=== PATIENT | female | born 1960 | race Caucasian/White ===

== ENCOUNTER 2023-12-03 14:36 | Emergency (ER) | payer OTHER, SELFPAY ==
[2023-12-03 14:53] VITALS: BP 168/83
--- NOTE | 2023-12-03 15:41 | ED.GENMED ---
History of Present Illness
General
Chief Complaint: Heart Rate Problem
Source: patient
Exam Limitations: none
Time Seen by Provider: 12/03/23 15:12
Nursing documentation reviewed up to this point in time: agreed with
History of Present Illness
History of Present Illness:
63-year-old female distant history of PVCs in the had a Holter monitor placed on lisinopril beta-carlitos or calcium channel carlitos calcium channel carlitos was held with first-degree block, has been well up until a few hours ago which
developed irregular heartbeats no nausea vomiting fever no chills, no chest pain has had thyroid issues, gets a TSH every year, nondrinker non-smoker no caffeine
Past History
Past History
ED Past Medical History: Arrthythmia (Specifics unknown), GERD, HTN and Other (Peptic ulcer disease, Graves' disease, back problems, diverticulitis, M�ni�re's disease)
ED Past Surgical History: Other (Oral surgery)
Social History
Tobacco: Non-smoker
Alcohol: None
Drug: None
Personal: Single
Living: with family
Employment: Employed
Family History
Family History: Other (Mother with A-fib)
Review of Systems
Review of Systems
All Other Systems: Not applicable
Constitutional: Denies fever or fatigue
Cardiac: Reports palpitations
ABD/GI: Reports no symptoms
: Reports no symptoms
Musculoskeletal: Reports no symptoms
Skin: Reports no symptoms
Neurological: Reports no symptoms
Phy Exam
Physical Exam
Physical Exam:
Physical Exam
General: no apparent distress, not acutely ill
Neck: No jaundice no obvious goiter
Heart: s1/s2 regular rate and rhythm, no murmur. equal radial pulses.
Lungs: no acute respiratory distress. clear bilaterally
Neuro: alert and oriented. no focal neurological deficits
Skin: no rash
Psychiatric: well kept. interactive and cooperative
Extremities: no edema.
Course
Orders/Labs/Results
Orders:
Orders
12/03/23 14:56
Electrocardiogram (*1) Urgent
Reason for Study: Chest Pain
12/03/23 14:57
EKG- Treatment ONCE
12/03/23 15:40
Complete Blood Count/With Diff Urgent
Comprehensive Metabolic Panel Urgent
Magnesium Urgent
TSH Urgent
Abnormal Lab Results
12/03/23
15:40
Absolute Monos (auto) 0.8 H 10^3/uL
(0.1-0.6)
Glucose 125 H mg/dl
(70-99)
12/03/23 15:40
12/03/23 15:40
Vital Signs
Initial and Last Documented VS:
Initial Vital Signs
Temp Pulse Resp BP Pulse Ox
98.0 F 88 16 168/83 98
12/03/23 14:53 12/03/23 14:53 12/03/23 14:53 12/03/23 14:53 12/03/23 14:53
Last Documented Vital Signs
Temp Pulse Resp BP Pulse Ox
98.0 F 70 18 168/83 96
12/03/23 14:53 12/03/23 16:30 12/03/23 16:30 12/03/23 14:53 12/03/23 16:30
MDM/Problems Addressed
Differential Diagnosis Includes:
PVCs SVT AF other arrhythmia electrolyte abnormality
MDM/Problems Addressed:
Palpitation
Chronic conditions affecting care: Arrhythmia
Acute Exacerbation and/or Progression of Chronic Illness: Arrhythmia
*Pulse Oximetry
Patient hypoxic: no
*EKG
Interpreted by ED Provider?: Yes
Interpretation: normal
Comparison EKG: no comparison EKG present
Heart Rate: 70
Rate: normal
Rhythm: sinus
Spencer: normal axis
Ischemia: no ischemia
*[employer] Interpretation
Rate: normal
Interpretation: normal
Heart Rate: 78
Rhythm: sinus and PVC's
*Critical Care Note
Total Time (30-74mins, 75-104mins- exclusive of procedures): Not Applicable
Data Reviewed
Source: patient
Update Note
Update Note:
Update, labs noted no arrhythmias on telemetry did have occasional PVCs
ED Attending Note
-
Portions of this chart may have been created with voice recognition software.� Occasional wrong word or��sound alike� substitutions may have occurred due to the inherent limitations of voice recognition software.
Discharge Plan
Departure
Patient Disposition: Home (Routine Discharge)
Date of Disposition: 12/03/23
Time of Disposition: 16:40
Patient with high blood pressure during this ER visit?: No
Condition: Good
Discharge Problem:
Heart palpitations
Instructions: Palpitations (DC), Ventricular premature beats
Prescriptions:
No Action
Vitamin A & D
1 tab PO DAILY
diazepam 2 MG tablet
2 mg PO TIDPRN PRN (Reason: vertigo)
lisinopril [Prinivil] 10 MG tablet
20 mg PO BID
metoprolol tartrate 50 MG tablet
50 mg PO BID
vitamin B complex 1 EACH tablet
1 tab PO DAILY
guaifenesin [Mucus Relief ER] 600 MG tablet extended release 12hr
600 mg PO PRN PRN (Reason: allergies)
rabeprazole [AcipHex] 20 MG tablet,delayed release (DR/EC)
20 mg PO BID
fluticasone propionate [Flovent HFA] 1 PUFF HFA aerosol inhaler
1 - 2 puff inhalation R BID PRN (Reason: allergies)
metformin 500 MG tablet
500 mg PO BID
atorvastatin [Lipitor] 40 MG tablet
40 mg PO QPM Qty: 30 0RF
ondansetron 4 MG tablet,disintegrating
4 mg PO Q8H PRN (Reason: Nausea/Vomiting) Qty: 20 0RF
calcium carbonate [Antacid (calcium carbonate)] 1 TABLET tablet,chewable
1 tab PO DAILY Qty: 0 0RF
docusate sodium 100 MG capsule
100 mg PO BID Qty: 0 0RF
bisacodyl 5 MG tablet,delayed release (DR/EC)
10 mg PO DAILYPRN PRN (Reason: Constipation) Qty: 0 0RF
phenyleph-min oil-petrolatum [Hemorrhoidal(PE-min oil-neda)] 1 APPLIC ointment
0 applic DC Q6HPRN PRN (Reason: hemorrhoid pain) 0RF
sennosides [senna] 1 TABLET tablet
2 tab PO BID 0RF
acetaminophen 325 MG tablet
650 mg PO Q4HPRN PRN (Reason: headache, temp >101F) Qty: 0 0RF
magnesium hydroxide 30 ML suspension
30 ml PO [id number] PRN (Reason: constipation) 0RF
aspirin 325 MG tablet,delayed release (DR/EC)
325 mg PO DAILY Qty: 30 0RF
Rx Instructions:
Asprin 325 mg for 30 days then resume aspirin 81 mg daily as before surgery
alum-mag hydroxide-simeth [Mag-Al Plus] 30 ML suspension
30 ml PO Q4HPRN PRN (Reason: indigestion) 0RF
hydrocodone-acetaminophen [[place]] 1 EACH tablet
1 ea PO Q4HPRN PRN (Reason: pain) Qty: 30 0RF
doxycycline monohydrate 100 mg capsule
100 mg PO BID Qty: 6 0RF
Rx Instructions:
to add to 7 day supply
Referrals:
Miri Leach CRNP [Family Provider] -
Yonathan Gordon MD [Active] - Next open appointment
Interventions
Interventions:
*Risk Screen - Suicide Last Done: 12/03/23 16:05
*Neglect/Abuse Screening Last Done: 12/03/23 16:05
*ED COVID-19 Vaccine History Last Done: 12/03/23 14:53
ED- Cardiac Assessment Last Done: 12/03/23 16:05
ED- Pulmonary Assessment Last Done: 12/03/23 16:05
Discharge Date and Time
Print Language: BELARUSIAN
[2023-12-03 15:49] LABS: % Basophils 0.4 % (0-2); % Eosinophils 4.7 % (0-6); % Immature Granulocytes 0.4 % (0-0.5); % Lymphocytes 32.2 % (20.5-51.1); % Monocytes 9.2 % (1.7-9.3); % Neutrophils 53.1 % (42.2-75.2); Absolute Eosinophils 0.4 10^3/uL (0-0.7); Absolute Lymphocytes 2.9 10^3/uL (1.2-3.4); Absolute Monocytes 0.8 10^3/uL (0.1-0.6); Absolute Neutrophils 4.8 10^3/uL (1.4-6.5); Hematocrit 38.4 % (37.0-47.0); Hemoglobin 13.4 g/dL (12.0-16.0); Mean Corp Hgb Conc. 34.9 g/dL (33.0-37.0); Mean Corpuscular Hgb 29.1 pg (27.0-31.0); Mean Corpuscular Volume 83.5 fL (81.0-99.0); Mean Platelet Volume 9.7 fL (7.4-10.4); Nucleated Red Blood Cells % 0 %; Platelet Count 307 10^3/uL (130-400); Red Cell Dist. Width 13.4 % (11.5-14.5); White Blood Cell Count 9.1 10^3/uL (4.8-10.8)
[2023-12-03 16:02] LABS: ALT (SGPT) 31 U/L (0-35); AST (SGOT) 28 U/L (14-36); Albumin 4.3 g/dl (3.5-5.0); Alkaline Phosphatase 110 U/L (38-126); Blood Urea Nitrogen 17 mg/dl (7-17); Calcium 9.6 mg/dl (8.4-10.2); Carbon Dioxide 22 mmol/L (22-30); Chloride 103 mmol/L (98-107); Glucose 125 mg/dl (70-99); Magnesium 1.8 mg/dl (1.6-2.3); Potassium 3.9 mmol/L (3.5-5.1); Sodium 137 mmol/L (135-145); Total Bilirubin 0.7 mg/dl (0.2-1.3); Total Protein 7.2 g/dl (6.3-8.2); eGFR > 60.00
[2023-12-03 16:32] LABS: TSH 1.49 uIU/ml (0.47-4.68)
== END 2023-12-03 17:27 | disposition home or self-care (01) ==
LOC: EMR 14:36
PROVIDERS: EMERGENCY PHYSICIAN Emergency Medicine; FAMILY PHYSICIAN Nurse Practitioner Primary Care
DX: R00.2 Palpitations (principal); I44.0 Atrioventricular block, first degree; I10 Essential (primary) hypertension; I49.3 Ventricular premature depolarization; K21.9 Gastro-esophageal reflux disease without esophagitis; E05.00 Thyrotoxicosis with diffuse goiter without thyrotoxic crisis or storm; K57.92 Diverticulitis of intestine, part unspecified, without perforation or abscess without bleeding; H81.09 Meniere's disease, unspecified ear; Z87.11 Personal history of peptic ulcer disease
CPT/HCPCS: 99283; 80053; 83735; 84443; 85025; 93005

== ENCOUNTER → 2023-12-15 09:00 | Outpatient (REF) | payer OTHER, SELFPAY | LOC: DHSLP 09:00 | PROVIDERS: ATTENDING PHYSICIAN Internal Medicine Critical Care Medicine; FAMILY PHYSICIAN Nurse Practitioner Primary Care | DX: G47.33 Obstructive sleep apnea (adult) (pediatric) (principal); R06.83 Snoring | CPT/HCPCS: 95800 ==

== ENCOUNTER 2024-03-15 08:18 | Emergency (ER) | payer OTHER, SELFPAY ==
[2024-03-15 08:21] VITALS: BP 149/89
[2024-03-15 09:13] VITALS: BMI 38.4
--- NOTE | 2024-03-15 09:29 | ED.GENMED ---
History of Present Illness
General
Chief Complaint: Abdominal Pain
Source: patient
Exam Limitations: none
Time Seen by Provider: 03/15/24 09:01
Nursing documentation reviewed up to this point in time: agreed with
History of Present Illness
History of Present Illness:
pt is a 63 y/o F with h/o sinus arrhythnmia, htn, niddm, diverticulitis
has had LLQ pain since yesterday gradually worse, similar to previous diverticulitis flares
she did clear liquids and is having worse pain today which is provoked with movement/bending/etc and better with lying flat
nausea but no vomiting/dairrhea, moved bowels this am
no fever/chills
nothing taken for pain
she says ibuprofen makes her bg elevated
she doesn't think tylenol helps
she had hydrocodone last week for an infected tooth and doxycycline and is asking for hydrocodone for pain
pt has had 1 previous hospitalization for divertic when it began [id number]
she has not had colonooscopies
Past History
Past History
ED Past Medical History: Arrthythmia (Specifics unknown), GERD, HTN and Other (Peptic ulcer disease, Graves' disease, back problems, diverticulitis, M�ni�re's disease)
ED Past Surgical History: Other (Oral surgery)
Social History
Tobacco: Non-smoker
Alcohol: None
Drug: None
Personal: Single
Living: with family
Employment: Employed
Family History
Family History: Other (Mother with A-fib)
Review of Systems
Review of Systems
Allergies reviewed?: Yes
All Other Systems: Not applicable
Phy Exam
Physical Exam
Physical Exam:
GENERAL: Alert , in no apparent distress
EYE: pupils equal and reactive
NECK: Supple
ENT: o/p clr, mmm.
CARDIAC: Regular rate and rhythm .
LUNGS: Clear breath sounds bilaterally, no acute respiratory distress, no wheezes/rales/rhonchi
ABDOMEN: Soft, mild left lower quad tendenress, no r/g, no cvat, normal bowel sounds
NEUROLOGICAL: Alert and oriented, no focal neuro deficits
SKIN: Warm and dry, skin intact.
MUSCULOSKELETAL: No edema, well perfused.
PSYCH: Normal and appropriate interaction.
Course
Orders/Labs/Results
Orders:
Orders
03/15/24 09:26
Hydrocodone 5/APAP 325 [[place] 5/325] 1 tablet PO NOW STA
03/15/24 09:27
CT Abd/pel (oral only)-DH Only Urgent
Comment:
Reason For Exam: llq pain h/o diverticulitis
Iohexol [Omnipaque] See Protocol PO NOW STA
03/15/24 09:37
Basic Metabolic Panel Urgent
Complete Blood Count/With Diff Urgent
Lipase Urgent
03/15/24 12:22
Comprehensive Metabolic Panel Urgent
Lipase Urgent
03/15/24 13:11
MetroNIDAZOLE [Flagyl] 500 mg PO NOW STA
Sulfamethox./Trimethoprim Ds [Bactrim Ds 800 mg/160 mg] 1 tablet PO NOW STA
03/15/24 13:15
Urinalysis Reflex To Culture Urgent
Date Specimen was Collected: 03/15/24
Time Specimen was Collected: 13:14
Urine Microscopic Reflex Cult Urgent
Abnormal Lab Results
03/15/24 03/15/24 03/15/24
09:37 12:22 12:23
WBC 11.2 H 10^3/uL
(4.8-10.8)
Abs Immat Gran (auto) 0.1 H 10^3/uL
(0-0.05)
Absolute Neuts (auto) 7.3 H 10^3/uL
(1.4-6.5)
Absolute Monos (auto) 0.9 H 10^3/uL
(0.1-0.6)
BUN 18 H mg/dl
(7-17)
Glucose 123 H mg/dl 114 H mg/dl
(70-99) (70-99)
Ur Occult Blood Reflex
Urine RBC
Urine Bacteria (Reflex)
POC Glucose 113 H mg/dl
(70-99)
03/15/24
13:15
WBC
Abs Immat Gran (auto)
Absolute Neuts (auto)
Absolute Monos (auto)
BUN
Glucose
Ur Occult Blood Reflex 3+ A
(Negative)
Urine RBC 11-15 A /HPF
(0-2)
Urine Bacteria (Reflex) Few A
(Negative)
POC Glucose
03/15/24 09:37
03/15/24 12:22
Vital Signs
Initial and Last Documented VS:
Initial Vital Signs
Temp Pulse Resp BP Pulse Ox
98.7 F 78 18 149/89 98
03/15/24 08:21 03/15/24 08:21 03/15/24 08:21 03/15/24 08:21 03/15/24 08:21
Last Documented Vital Signs
Temp Pulse Resp BP Pulse Ox
98.7 F 65 16 134/52 99
03/15/24 08:21 03/15/24 13:05 03/15/24 13:05 03/15/24 13:05 03/15/24 13:05
MDM/Problems Addressed
Differential Diagnosis Includes:
divertic, colitis,
MDM/Problems Addressed:
63 y/o F with h/o divertic
here with LLQ pain x 2 days
no vomiting/diarrhea/fever
well [place]
mild pain with movement
requesting hydrocodone
LLQ tenderness, no guarding/rebound
labs show mild leukocytosis
otherwise neg
CT shows mild divertic
liver lesion discussed with patient
ua has some blood and bacteria;
pt is allergic to PCN and FQ
per up to date recommendations can do bactrim and flagyl which pt has toelrated in the apst
she was made awre the bactrimn and lisinopril can cause inc K
aovid K rich foods
f/u with pcp
k 4.5 today
*Critical Care Note
Total Time (30-74mins, 75-104mins- exclusive of procedures): Not Applicable
ED Attending Note
-
Portions of this chart may have been created with voice recognition software.� Occasional wrong word or��sound alike� substitutions may have occurred due to the inherent limitations of voice recognition software.
Discharge Plan
Departure
Patient Disposition: Home (Routine Discharge)
Date of Disposition: 03/15/24
Time of Disposition: 13:12
Patient with high blood pressure during this ER visit?: No
Condition: Fair
Covid-19: Not Applicable
Discharge Problem:
Diverticulitis
Instructions: Diverticulitis (DC)
Prescriptions:
New
sulfamethoxazole-trimethoprim [Bactrim DS] 800-160 mg tablet
1 tab PO BID 7 Days Qty: 14 0RF
metronidazole 500 mg tablet
500 mg PO Q8H 7 Days Qty: 21 0RF
No Action
Vitamin A & D
1 tab PO DAILY
diazepam 2 MG tablet
2 mg PO TIDPRN PRN (Reason: vertigo)
lisinopril [Prinivil] 10 MG tablet
20 mg PO BID
metoprolol tartrate 50 MG tablet
50 mg PO BID
vitamin B complex 1 EACH tablet
1 tab PO DAILY
guaifenesin [Mucus Relief ER] 600 MG tablet extended release 12hr
600 mg PO PRN PRN (Reason: allergies)
rabeprazole [AcipHex] 20 MG tablet,delayed release (DR/EC)
20 mg PO BID
fluticasone propionate [Flovent HFA] 1 PUFF HFA aerosol inhaler
1 - 2 puff inhalation R BID PRN (Reason: allergies)
metformin 500 MG tablet
500 mg PO BID
atorvastatin [Lipitor] 40 MG tablet
40 mg PO QPM Qty: 30 0RF
ondansetron 4 MG tablet,disintegrating
4 mg PO Q8H PRN (Reason: Nausea/Vomiting) Qty: 20 0RF
calcium carbonate [Antacid (calcium carbonate)] 1 TABLET tablet,chewable
1 tab PO DAILY Qty: 0 0RF
docusate sodium 100 MG capsule
100 mg PO BID Qty: 0 0RF
bisacodyl 5 MG tablet,delayed release (DR/EC)
10 mg PO DAILYPRN PRN (Reason: Constipation) Qty: 0 0RF
phenyleph-min oil-petrolatum [Hemorrhoidal(PE-min oil-neda)] 1 APPLIC ointment
0 applic [place] Q6HPRN PRN (Reason: hemorrhoid pain) 0RF
sennosides [senna] 1 TABLET tablet
2 tab PO BID 0RF
acetaminophen 325 MG tablet
650 mg PO Q4HPRN PRN (Reason: headache, temp >101F) Qty: 0 0RF
magnesium hydroxide 30 ML suspension
30 ml PO [id number] PRN (Reason: constipation) 0RF
aspirin 325 MG tablet,delayed release (DR/EC)
325 mg PO DAILY Qty: 30 0RF
Rx Instructions:
Asprin 325 mg for 30 days then resume aspirin 81 mg daily as before surgery
alum-mag hydroxide-simeth [Mag-Al Plus] 30 ML suspension
30 ml PO Q4HPRN PRN (Reason: indigestion) 0RF
hydrocodone-acetaminophen [[place]] 1 EACH tablet
1 ea PO Q4HPRN PRN (Reason: pain) Qty: 30 0RF
doxycycline monohydrate 100 mg capsule
100 mg PO BID Qty: 6 0RF
Rx Instructions:
to add to 7 day supply
Referrals:
Miri Leach CRNP [Family Provider] -
Activity Restrictions/Additional Instructions:
You had mild diverticulitis in your descending/sigmoid colon. Take Flagyl 3 times a day for 7 days. Take Bactrim 1 tablet twice a day for 7 days. Be cautious that Bactrim and lisinopril can increase your potassium levels. Avoid extra potassium
in foods, you can google what foods are high in potassium and avoid those. You can also see your doctor next week to make sure they recheck you.
Return to the ER for worsening abdominal pain, fever, chills, chest pain or shortness of breath, bloody diarrhea or vomiting or any concerns
Interventions
Interventions:
*Risk Screen - Suicide Last Done: 03/15/24 08:21
*General Assessment Last Done: 03/15/24 08:21
*Neglect/Abuse Screening Last Done: 03/15/24 08:21
ED- Fall Risk Assessment Last Done: 03/15/24 13:22
*ED COVID-19 Vaccine History Last Done: 03/15/24 09:13
*Nursing Disposition Last Done: 03/15/24 13:22
DH-Lxgnie-Libflgmwlm Assessment Last Done: 03/15/24 09:14
Discharge Date and Time
Discharge Date/Time: 03/15/24 13:22
Print Language: ARMENIAN
[2024-03-15] MEDS: NORCO 5/325 1 TABLET PO (09:41)
[2024-03-15] MEDS: OMNIPAQUE 50 ML PO (09:42)
[2024-03-15 09:49] LABS: % Basophils 0.4 % (0-2); % Eosinophils 2.7 % (0-6); % Immature Granulocytes 0.4 % (0-0.5); % Lymphocytes 23.1 % (20.5-51.1); % Monocytes 8.2 % (1.7-9.3); % Neutrophils 65.2 % (42.2-75.2); Absolute Basophils 0.1 10^3/uL (0-0.2); Absolute Eosinophils 0.3 10^3/uL (0-0.7); Absolute Immature Granulocytes 0.1 10^3/uL (0-0.05); Absolute Lymphocytes 2.6 10^3/uL (1.2-3.4); Absolute Monocytes 0.9 10^3/uL (0.1-0.6); Absolute Neutrophils 7.3 10^3/uL (1.4-6.5); Hematocrit 39.3 % (37.0-47.0); Hemoglobin 13.4 g/dL (12.0-16.0); Mean Corp Hgb Conc. 34.1 g/dL (33.0-37.0); Mean Corpuscular Hgb 28.2 pg (27.0-31.0); Mean Corpuscular Volume 82.7 fL (81.0-99.0); Mean Platelet Volume 9.4 fL (7.4-10.4); Nucleated Red Blood Cells % 0 %; Platelet Count 247 10^3/uL (130-400); Red Blood Cell Count 4.75 10^6/uL (4.20-5.40); Red Cell Dist. Width 13.3 % (11.5-14.5); White Blood Cell Count 11.2 10^3/uL (4.8-10.8)
[2024-03-15 10:31] LABS: Blood Urea Nitrogen 18 mg/dl (7-17); Calcium 9.9 mg/dl (8.4-10.2); Carbon Dioxide 24 mmol/L (22-30); Chloride 100 mmol/L (98-107); Estimated Creatinine Clearance 120 ml/min; Glucose 123 mg/dl (70-99); Sodium 138 mmol/L (135-145); eGFR > 60.00
[2024-03-15 10:44] LABS: Lipase 91 U/L (23-300)
[2024-03-15 10:59] VITALS: BP 145/87
[2024-03-15 12:24] LABS: Glucose - Point of Care 113 mg/dl (70-99)
[2024-03-15 12:49] LABS: ALT (SGPT) 32 U/L (0-35); AST (SGOT) 25 U/L (14-36); Albumin 4.2 g/dl (3.5-5.0); Alkaline Phosphatase 82 U/L (38-126); Blood Urea Nitrogen 16 mg/dl (7-17); Calcium 9.9 mg/dl (8.4-10.2); Carbon Dioxide 25 mmol/L (22-30); Chloride 99 mmol/L (98-107); Estimated Creatinine Clearance 120 ml/min; Glucose 114 mg/dl (70-99); Lipase 91 U/L (23-300); Potassium 4.5 mmol/L (3.5-5.1); Sodium 136 mmol/L (135-145); Total Bilirubin 0.7 mg/dl (0.2-1.3); Total Protein 6.9 g/dl (6.3-8.2); eGFR > 60.00
[2024-03-15 13:05] VITALS: BP 134/52
[2024-03-15] MEDS: FLAGYL 500 MG PO (13:15)
[2024-03-15] MEDS: BACTRIM DS 800 MG/160 MG 1 TABLET PO (13:15)
[2024-03-15 13:27] LABS: Urine Albumin Negative (Neg - Trace); Urine Bilirubin Negative (Negative); Urine Character Clear (Clear); Urine Color Yellow; Urine Glucose Negative (Negative); Urine Ketone Negative (Negative); Urine Leukocyte Negative (Negative); Urine Nitrite Negative (Negative); Urine Occult Blood 3+ (Negative); Urine Specific Gravity 1.015 (<1.030); Urine Urobilinogen Negative (Neg - 1+)
[2024-03-15 13:35] LABS: Urine Bacteria Few (Negative); Urine White Cell 0-2 /HPF (0-5)
== END 2024-03-15 13:22 | disposition home or self-care (01) ==
LOC: EMR 08:18
PROVIDERS: Physician Assistant; EMERGENCY PHYSICIAN Emergency Medicine; FAMILY PHYSICIAN Nurse Practitioner Primary Care
DX: K57.32 Diverticulitis of large intestine without perforation or abscess without bleeding (principal); I10 Essential (primary) hypertension; E11.9 Type 2 diabetes mellitus without complications; K21.9 Gastro-esophageal reflux disease without esophagitis; E05.00 Thyrotoxicosis with diffuse goiter without thyrotoxic crisis or storm; Z79.82 Long term (current) use of aspirin; Z87.11 Personal history of peptic ulcer disease; Z88.8 Allergy status to other drugs, medicaments and biological substances; Z88.1 Allergy status to other antibiotic agents; Z91.030 Bee allergy status; Z91.041 Radiographic dye allergy status; Z88.0 Allergy status to penicillin; Z91.013 Allergy to seafood
CPT/HCPCS: 99284; 74176; 80048; 80053; 81003; 81015; 82962; 83690; 85025

== ENCOUNTER 2024-04-04 03:38 | Emergency (ER) | payer OTHER, SELFPAY ==
[2024-04-04 03:41] VITALS: BP 180/110
[2024-04-04 04:24] VITALS: BMI 37.0
[2024-04-04 04:29] VITALS: BP 142/68
[2024-04-04 05:01] VITALS: BP 112/100
--- NOTE | 2024-04-04 05:03 | ED.GENMED ---
History of Present Illness
<ZECHARIAH Ivy - Last Filed: 04/04/24 06:12>
General
Chief Complaint: Cardiac Symptoms
Source: patient
Exam Limitations: none
Time Seen by Provider: 04/04/24 04:46
Nursing documentation reviewed up to this point in time: agreed with
History of Present Illness
History of Present Illness:
Patient is a 63yo F w/ PMH of DM, HTN, and arrhythmia who presents to the ED w/ palpitations x3hrs. Pt was awoken by palpitations. Denies anxiety. Reports arrhythmia since 20s controlled w/ lisinopril & metoprolol until a fw months ago. Reports
similar episode of palpitations that brought her to ER a few months ago. Had cath in 90s & could not find foci. She denies SOB and chest pain but feels she has to concentrate on breathing. Denies TORIBIO, dizziness, flushing, or sweating. She states
palpitations stopped a few minutes ago but she believes they will return once she stands up. Notes recent dental infx tx w/ doxy and diverticulitis tx w/ Bactrim & metro. Received COVID vaccine yesterday.
Past History
<ZECHARIAH Ivy - Last Filed: 04/04/24 06:12>
Past History
ED Past Medical History: Arrthythmia (Specifics unknown), GERD, HTN and Other (Peptic ulcer disease, Graves' disease, back problems, diverticulitis, M�ni�re's disease)
ED Past Surgical History: Other (Oral surgery)
Social History
Tobacco: Non-smoker
Alcohol: None
Drug: None
Personal: Single
Living: with family
Employment: Employed
Family History
Family History: Other (Mother with A-fib)
Review of Systems
<ZECHARIAH Ivy - Last Filed: 04/04/24 06:12>
Review of Systems
Constitutional: Denies fever, fatigue or chills
Respiratory: Denies cough or trouble breathing
Cardiac: Reports palpitations; Denies chest pain, diaphoresis or syncope
ABD/GI: Denies abdominal pain, nausea, vomiting, diarrhea or constipated
: Denies dysuria
Musculoskeletal: Denies joint pain or muscle pain
Neurological: Denies dizzy, headache, weakness or numbness
Phy Exam
<Glo Little [facility] - Last Filed: 04/04/24 06:12>
General Physical Exam
General Presentation: moderate distress
General age: appears younger than age
General Skin: warm and dry
General Habitus: normal
General Mental: alert
Eye Exam
Eye Exam: PERRL
Cardiovascular Exam
Cardiovascular Exam: regular rate/rhythm, no edema, no gallop and no murmur
Pulmonary Exam
Pulmonary Exam: lungs clear, no respiratory distress, no rales, no crackles, no rhonchi and no wheezing
Neurological Exam
Neurological Exam: alert, oriented x3 and speech normal
Course
<Glo Little [facility] - [facility] Filed: 04/04/24 06:12>
Orders/Labs/Results
Orders:
Orders
04/04/24 03:40
ECG [Electrocardiogram (*1)] Urgent
Reason for Study: Palpitations
EKG- Treatment ONCE
04/04/24 04:44
Complete Blood Count/With Diff Urgent
Comprehensive Metabolic Panel Urgent
Troponin I Urgent
Abnormal Lab Results
04/04/24
04:44
Abs Immat Gran (auto) 0.1 H 10^3/uL
(0-0.05)
Absolute Monos (auto) 0.7 H 10^3/uL
(0.1-0.6)
Immature Gran % 0.8 H %
(0-0.5)
Creatinine 0.5 L mg/dL
(0.6-1.0)
Glucose 149 H mg/dl
(70-99)
04/04/24 04:44
04/04/24 04:44
Vital Signs
Initial and Last Documented VS:
Initial Vital Signs
Temp Pulse Resp BP Pulse Ox
97.9 F 90 20 180/110 97
04/04/24 03:41 04/04/24 03:41 04/04/24 03:41 04/04/24 03:41 04/04/24 03:41
Last Documented Vital Signs
Temp Pulse Resp BP Pulse Ox
97.9 F 75 17 112/100 96
04/04/24 03:41 04/04/24 05:15 04/04/24 05:15 04/04/24 05:01 04/04/24 05:30
<Natali Chan, DO - Last Filed: 04/04/24 06:06>
Orders/Labs/Results
Orders:
Orders
04/04/24 03:40
ECG [Electrocardiogram (*1)] Urgent
Reason for Study: Palpitations
EKG- Treatment ONCE
04/04/24 04:44
Complete Blood Count/With Diff Urgent
Comprehensive Metabolic Panel Urgent
Troponin I Urgent
Abnormal Lab Results
04/04/24
04:44
Abs Immat Gran (auto) 0.1 H 10^3/uL
(0-0.05)
Absolute Monos (auto) 0.7 H 10^3/uL
(0.1-0.6)
Immature Gran % 0.8 H %
(0-0.5)
Creatinine 0.5 L mg/dL
(0.6-1.0)
Glucose 149 H mg/dl
(70-99)
04/04/24 04:44
04/04/24 04:44
Vital Signs
Initial and Last Documented VS:
Initial Vital Signs
Temp Pulse Resp BP Pulse Ox
97.9 F 90 20 180/110 97
04/04/24 03:41 04/04/24 03:41 04/04/24 03:41 04/04/24 03:41 04/04/24 03:41
Last Documented Vital Signs
Temp Pulse Resp BP Pulse Ox
97.9 F 75 17 112/100 96
04/04/24 03:41 04/04/24 05:15 04/04/24 05:15 04/04/24 05:01 04/04/24 05:30
<ZECHARIAH Ivy - Last Filed: 04/04/24 06:12>
MDM/Problems Addressed
Differential Diagnosis Includes:
sinus arrhythmia, anxiety
<ZECHARIAH Ivy - Last Filed: 04/04/24 06:12>
*Critical Care Note
Total Time (30-74mins, 75-104mins- exclusive of procedures): Not Applicable
<Natali Chan DO - Last Filed: 04/04/24 06:06>
*Pulse Oximetry
Patient hypoxic: no
*EKG
Interpreted by ED Provider?: Yes
Comparison EKG: no changes (Unchanged from previous save for a few PACs are new)
Rate: normal
Rhythm: sinus and PAC's
[place]: normal axis
Interval: normal interval
QRS Pattern: normal QRS
Ischemia: no ischemia
*Parking Manager Interpretation
Rate: normal
Interpretation: normal
Rhythm: sinus
ED Attending Note
<ZECHARIAH Ivy - Last Filed: 04/04/24 06:12>
-
Portions of this chart may have been created with voice recognition software.� Occasional wrong word or��sound alike� substitutions may have occurred due to the inherent limitations of voice recognition software.
<Natali Chan, DO - Last Filed: 04/04/24 06:06>
ED Attending Note
Patient seen and examined by attending physician: Yes
I performed the substantive portion of visit, reviewed & personally made and approve the management plan that is documented in note by myself or NAHOMI.: Yes
ED Attending Note:
This is a 63-year-old woman with history of hypertension, asthma, history of palpitations with known history of intermittent PVCs, PACs who awoke tonight with complaints of palpitations, feeling that her heart was skipping beats. Similar complaint
during ED visit in November. She does follow sporadically with cardiology, Dr. Gordon. She is chronically maintained on metoprolol tartrate 50 mg twice daily as well as lisinopril.
She denies dizziness nor lightheadedness, no chest pain, no shortness of breath, no nausea no vomiting, no diarrhea or constipation.
Since arrival to the ED feeling markedly improved, no further palpitations but is worried that palpitations will recur when she is 'up and about'
She denies caffeine use, denies alcohol use, no decongestant use nor drug use.
GENERAL: 63-year-old woman appears her stated age, awake and alert, pleasant, appears in no acute distress.
EYE: anicteric
NECK: Supple, nontender, no meningismus, no significant adenopathy.
ENT: oral mucosa is moist. No rhinorrhea.
CARDIAC: Regular rate and rhythm. no murmur.
LUNGS: Clear breath sounds bilaterally, no acute respiratory distress, no wheezes/rales/rhonchi
ABDOMEN: Rotund, soft, nondistended, without focal tenderness
NEUROLOGICAL: Alert and oriented x3, no focal neuro deficits.
SKIN: Warm and dry, normal color, skin intact. No rash.
MUSCULOSKELETAL: No C/C/E. peripheral pulses are full and equal b/l. No palpable tenderness.
PSYCH: Normal and appropriate interaction.
EKG shows normal sinus rhythm with few PACs.
Monitor shows normal sinus rhythm without ectopy.
I suspect PACs are cause for patient's palpitations.
She has had no tacky arrhythmia, and no tachyarrhythmia nor extrasystole noted during ED visit in November.
Labs again are unremarkable.
Moderate hypertension noted initially has improved to 110/80.
With somewhat soft blood pressure would not recommend titrating metoprolol up for fear of hypotension.
Patient reassured that there has been no evidence of tacky arrhythmia.
Encouraged to stay well-hydrated on a daily basis, continue to avoid caffeine, alcohol, decongestants.
Continue current medications at present dose and recommend to follow-up with cardiology for further evaluation.
Discharge Plan
Departure
Patient Disposition: Home (Routine Discharge)
Date of Disposition: 04/04/24
Time of Disposition: 05:51
Patient with high blood pressure during this ER visit?: No
Condition: Good
Discharge Problem:
Heart palpitations, Atrial premature contractions
Instructions: Heart Palpitations
Prescriptions:
No Action
Vitamin A & D
1 tab PO DAILY
diazepam 2 MG tablet
2 mg PO TIDPRN PRN (Reason: vertigo)
lisinopril [Prinivil] 10 MG tablet
20 mg PO BID
metoprolol tartrate 50 MG tablet
50 mg PO BID
vitamin B complex 1 EACH tablet
1 tab PO DAILY
guaifenesin [Mucus Relief ER] 600 MG tablet extended release 12hr
600 mg PO PRN PRN (Reason: allergies)
rabeprazole [AcipHex] 20 MG tablet,delayed release (DR/EC)
20 mg PO BID
fluticasone propionate [Flovent HFA] 1 PUFF HFA aerosol inhaler
1 - 2 puff inhalation R BID PRN (Reason: allergies)
metformin 500 MG tablet
500 mg PO BID
atorvastatin [Lipitor] 40 MG tablet
40 mg PO QPM Qty: 30 0RF
ondansetron 4 MG tablet,disintegrating
4 mg PO Q8H PRN (Reason: Nausea/Vomiting) Qty: 20 0RF
calcium carbonate [Antacid (calcium carbonate)] 1 TABLET tablet,chewable
1 tab PO DAILY Qty: 0 0RF
docusate sodium 100 MG capsule
100 mg PO BID Qty: 0 0RF
bisacodyl 5 MG tablet,delayed release (DR/EC)
10 mg PO DAILYPRN PRN (Reason: Constipation) Qty: 0 0RF
phenyleph-min oil-petrolatum [Hemorrhoidal(PE-min oil-neda)] 1 APPLIC ointment
0 applic VA Q6HPRN PRN (Reason: hemorrhoid pain) 0RF
sennosides [senna] 1 TABLET tablet
2 tab PO BID 0RF
acetaminophen 325 MG tablet
650 mg PO Q4HPRN PRN (Reason: headache, temp >101F) Qty: 0 0RF
magnesium hydroxide 30 ML suspension
30 ml PO [id number] PRN (Reason: constipation) 0RF
aspirin 325 MG tablet,delayed release (DR/EC)
325 mg PO DAILY Qty: 30 0RF
Rx Instructions:
Asprin 325 mg for 30 days then resume aspirin 81 mg daily as before surgery
alum-mag hydroxide-simeth [Mag-Al Plus] 30 ML suspension
30 ml PO Q4HPRN PRN (Reason: indigestion) 0RF
hydrocodone-acetaminophen [Baxter] 1 EACH tablet
1 ea PO Q4HPRN PRN (Reason: pain) Qty: 30 0RF
doxycycline monohydrate 100 mg capsule
100 mg PO BID Qty: 6 0RF
Rx Instructions:
to add to 7 day supply
sulfamethoxazole-trimethoprim [Bactrim DS] 800-160 mg tablet
1 tab PO BID 7 Days Qty: 14 0RF
metronidazole 500 mg tablet
500 mg PO Q8H 7 Days Qty: 21 0RF
Referrals:
Miri Leach CRNP [Family Provider] -
Yonathan Gordon MD [Active] - Call in 1-3 days for appt
Interventions
Interventions:
*Risk Screen - Suicide Last Done: 04/04/24 03:41
*General Assessment Last Done: 04/04/24 04:24
*Neglect/Abuse Screening Last Done: 04/04/24 03:41
ED- Fall Risk Assessment Last Done: 04/04/24 04:24
*ED COVID-19 Vaccine History Last Done: 04/04/24 05:55
*Nursing Disposition Last Done: 04/04/24 05:55
ED- Pulmonary Assessment Last Done: 04/04/24 04:24
ED- Cardiac Assessment Last Done: 04/04/24 04:24
Discharge Date and Time
Discharge Date/Time: 04/04/24 05:55
Print Language: TURKMEN
[2024-04-04 05:06] LABS: % Basophils 0.4 % (0-2); % Eosinophils 3.3 % (0-6); % Immature Granulocytes 0.8 % (0-0.5); % Lymphocytes 24.1 % (20.5-51.1); % Monocytes 8.3 % (1.7-9.3); % Neutrophils 63.1 % (42.2-75.2); Absolute Eosinophils 0.3 10^3/uL (0-0.7); Absolute Immature Granulocytes 0.1 10^3/uL (0-0.05); Absolute Lymphocytes 1.9 10^3/uL (1.2-3.4); Absolute Monocytes 0.7 10^3/uL (0.1-0.6); Hematocrit 37.8 % (37.0-47.0); Hemoglobin 13.1 g/dL (12.0-16.0); Mean Corp Hgb Conc. 34.7 g/dL (33.0-37.0); Mean Corpuscular Hgb 28.3 pg (27.0-31.0); Mean Corpuscular Volume 81.6 fL (81.0-99.0); Mean Platelet Volume 8.9 fL (7.4-10.4); Nucleated Red Blood Cells % 0 %; Platelet Count 259 10^3/uL (130-400); Red Blood Cell Count 4.63 10^6/uL (4.20-5.40); Red Cell Dist. Width 13.4 % (11.5-14.5); White Blood Cell Count 7.9 10^3/uL (4.8-10.8)
[2024-04-04 05:18] LABS: ALT (SGPT) 29 U/L (0-35); AST (SGOT) 24 U/L (14-36); Albumin 4.5 g/dl (3.5-5.0); Alkaline Phosphatase 109 U/L (38-126); Blood Urea Nitrogen 15 mg/dl (7-17); Calcium 9.4 mg/dl (8.4-10.2); Carbon Dioxide 22 mmol/L (22-30); Chloride 102 mmol/L (98-107); Estimated Creatinine Clearance 118 ml/min; Glucose 149 mg/dl (70-99); Potassium 4.3 mmol/L (3.5-5.1); Sodium 140 mmol/L (135-145); Total Bilirubin 0.4 mg/dl (0.2-1.3); Total Protein 7.4 g/dl (6.3-8.2); eGFR > 60.00
[2024-04-04 05:29] LABS: Troponin I < 0.012 ng/ml
== END 2024-04-04 05:55 | disposition home or self-care (01) ==
LOC: EMR 03:38
PROVIDERS: EMERGENCY PHYSICIAN Emergency Medicine; FAMILY PHYSICIAN Nurse Practitioner Primary Care
DX: R00.2 Palpitations (principal); I49.1 Atrial premature depolarization; I10 Essential (primary) hypertension; E11.9 Type 2 diabetes mellitus without complications
CPT/HCPCS: 99284; 80053; 84484; 85025; 93005

== ENCOUNTER → 2024-04-15 10:20 | Outpatient (REF) | payer OTHER, SELFPAY | LOC: DHSLP 10:20 | PROVIDERS: ATTENDING PHYSICIAN Internal Medicine Geriatric Medicine; FAMILY PHYSICIAN Internal Medicine Critical Care Medicine | DX: G47.33 Obstructive sleep apnea (adult) (pediatric) (principal); G47.61 Periodic limb movement disorder | CPT/HCPCS: 95810 ==

== ENCOUNTER → 2024-04-20 07:07 | Outpatient (REF) | payer OTHER, SELFPAY | LOC: RCS 07:07 | PROVIDERS: ATTENDING PHYSICIAN Internal Medicine Cardiovascular Disease; FAMILY PHYSICIAN Nurse Practitioner Primary Care | DX: R00.2 Palpitations (principal) | CPT/HCPCS: 93306 ==

== ENCOUNTER → 2024-05-14 14:18 | Outpatient (REF) | payer OTHER, SELFPAY | LOC: WDC 14:18 | PROVIDERS: ATTENDING PHYSICIAN Nurse Practitioner Primary Care | DX: Z13.820 Encounter for screening for osteoporosis (principal); Z12.31 Encounter for screening mammogram for malignant neoplasm of breast | CPT/HCPCS: 77063; 77067; 77080 ==

== ENCOUNTER → 2024-05-23 10:13 | Outpatient (REF) | payer OTHER, SELFPAY | LOC: WDC 10:13 | PROVIDERS: ATTENDING PHYSICIAN Nurse Practitioner Primary Care | DX: R92.8 Other abnormal and inconclusive findings on diagnostic imaging of breast (principal) | CPT/HCPCS: 76642 ==

== ENCOUNTER 2025-04-14 00:42 | Observation (INO) | payer OTHER, SELFPAY ==
[2025-04-13 19:37] VITALS: BP 154/67
[2025-04-13 20:50] VITALS: BMI 38.6
--- NOTE | 2025-04-13 20:57 | EDRN ---
Pt has a swollen lower lip and is concerned it is angioedema from lisinopril. Swelling started this morning but got worse between [id number]. Pt has been on lisinopril for approximately 20 years. Last dose lisinopril was 1100 - no swelling at that
time. Pt did not take anything for swelling, has been using ice packs. No trouble speaking, tongue swelling, trouble swallowing, sob, itching. Pt says the rosacea on her face is redder than usual. No new rashes noted.
[2025-04-13 21:01] VITALS: BP 140/57
[2025-04-13] MEDS: BENADRYL 25 MG IV (22:12)
[2025-04-13] MEDS: DECADRON 10 MG IV (22:16)
[2025-04-13 22:22] VITALS: BP 132/51
[2025-04-13 22:42] LABS: Hematocrit 39.1 % (37.0-47.0); Hemoglobin 12.1 g/dL (12.0-16.0); Mean Corp Hgb Conc. 30.9 g/dL (33.0-37.0); Mean Corpuscular Volume 90.5 fL (81.0-99.0); Nucleated Red Blood Cells % 0 %; Platelet Count 317 10^3/uL (130-400); Red Cell Dist. Width 12.1 % (11.5-14.5)
[2025-04-13 22:58] LABS: Blood Urea Nitrogen 19 mg/dl (7-17); Calcium 9.2 mg/dl (8.4-10.2); Carbon Dioxide 24 mmol/L (22-30); Chloride 102 mmol/L (98-107); Estimated Creatinine Clearance 95 ml/min; Glucose 117 mg/dl (70-99); Potassium 4.6 mmol/L (3.5-5.1); Sodium 133 mmol/L (135-145); eGFR > 60.00
--- NOTE | 2025-04-13 23:56 | ED.GENMED ---
History of Present Illness
<Az Connors Jr., PA-C - Last Filed: 04/14/25 00:36>
General
Chief Complaint: Allergic Reaction
Source: patient
Exam Limitations: none
Time Seen by Provider: 04/13/25 21:19
Nursing documentation reviewed up to this point in time: agreed with
History of Present Illness
History of Present Illness:
64-year-old female past ministry of hypertension hyperlipidemia diabetes presenting to the emergency department today with concerns of swelling of lower lip starting this morning denies any specific trauma to the area but does take lisinopril over
the past 10 years. Denies any fevers drainage or additional concerns.
Past History
<Az Connors Jr., PA-C - Last Filed: 04/14/25 00:36>
Past History
ED Past Medical History: Arrthythmia (Specifics unknown), GERD, HTN and Other (Peptic ulcer disease, Graves' disease, back problems, diverticulitis, M�ni�re's disease)
ED Past Surgical History: Other (Oral surgery)
Social History
Tobacco: Non-smoker
Alcohol: None
Drug: None
Personal: Single
Living: with family
Employment: Employed
Family History
Family History: Other (Mother with A-fib)
Review of Systems
<Az Connors Jr., PA-C - Last Filed: 04/14/25 00:36>
Review of Systems
Allergies reviewed?: Yes
All Other Systems: ROS reviewed and negative except as documented in HPI and ROS
Phy Exam
<Az Connors Jr., PA-C - Last Filed: 04/14/25 00:36>
Physical Exam
Physical Exam:
GENERAL: Alert , in no apparent distress
EYE: pupils equal and reactive
NECK: Supple, no significant adenopathy.
ENT: Significant swelling to the lower lip but isolated to the lower lip. Posterior pharynx normal in appearance lungs are clear o/p clr, mmm.
CARDIAC: Regular rate and rhythm .
LUNGS: Clear breath sounds bilaterally, no acute respiratory distress, no wheezes/rales/rhonchi
ABDOMEN: Soft, without focal tenderness, no r/g, no cvat
NEUROLOGICAL: Alert and oriented, no focal neuro deficits
SKIN: Warm and dry, skin intact.
MUSCULOSKELETAL: No edema, well perfused.
PSYCH: Normal and appropriate interaction.
Course
<Az Connors Jr., PA-Duc - Last Filed: 04/14/25 00:36>
Orders/Labs/Results
Orders:
Orders
04/13/25 22:01
Dexamethasone Sod Phosphate [Decadron] 10 mg IV NOW STA
Diphenhydramine [Benadryl] 25 mg IV NOW STA
04/13/25 22:36
BMP [Basic Metabolic Panel] Urgent
CBC/With Diff [Complete Blood Count/With Diff] Urgent
04/14/25 00:20
Admit/Transfer Patient As Directed
Co-Sign Provider:
Level of Care: Observation services
Assign to:: IMU- Intermediate Care
Physician / Group: Eduin
Diagnosis: Angioedema
PRN Pain Medication Management As Directed
May give lesser potent ordered pain med per pt: Yes
preference::
Protocol:: Medication orders for pain may be administered in a
manner that supports deferring to patient preference
when the pt is:
- Requesting an ordered lesser potent pain medication.
Least to most potent pain medications are defined
as: acetaminophen < NSAID < tramadol < opioids
(morphine, oxycodone, hydromorphone).
- Requesting a lesser dose of the same medication IF
ORDERED.
- Requesting a less intrusive route of administration
if both routes are prescribed by the provider (PO <
IV).
04/14/25 00:21
Code Status As Directed
Resuscitation Status: Full Code
04/14/25 00:23
Fluticasone/Salmeterol 115/21 [Advair Hfa 115/21 Mcg Inhaler] 2 puff INH R NOW STA
Abnormal Lab Results
04/13/25
22:36
WBC 11.2 H 10^3/uL
(4.8-10.8)
MCHC 30.9 L g/dL
(33.0-37.0)
Abs Immat Gran (auto) 0.1 H 10^3/uL
(0-0.05)
Absolute Neuts (auto) 8.2 H 10^3/uL
(1.4-6.5)
Absolute Monos (auto) 0.9 H 10^3/uL
(0.1-0.6)
Immature Gran % 0.7 H %
(0-0.5)
Lymphocytes % 16.6 L %
(20.5-51.1)
Sodium 133 L mmol/L
(135-145)
BUN 19 H mg/dl
(7-17)
Glucose 117 H mg/dl
(70-99)
04/13/25 22:36
04/13/25 22:36
Vital Signs
Initial and Last Documented VS:
Initial Vital Signs
Temp Pulse Resp BP Pulse Ox
98.7 F 81 16 154/67 98
04/13/25 19:37 04/13/25 19:37 04/13/25 19:37 04/13/25 19:37 04/13/25 19:37
Last Documented Vital Signs
Temp Pulse Resp BP Pulse Ox
98.7 F 78 15 132/51 97
04/13/25 19:37 04/14/25 00:00 04/14/25 00:00 04/13/25 22:22 04/14/25 00:00
<Ying Germain MD - Last Filed: 04/14/25 00:10>
Orders/Labs/Results
Orders:
Orders
04/13/25 22:01
Dexamethasone Sod Phosphate [Decadron] 10 mg IV NOW STA
Diphenhydramine [Benadryl] 25 mg IV NOW STA
04/13/25 22:36
BMP [Basic Metabolic Panel] Urgent
CBC/With Diff [Complete Blood Count/With Diff] Urgent
04/14/25 00:20
Admit/Transfer Patient As Directed
Co-Sign Provider:
Level of Care: Observation services
Assign to:: IMU- Intermediate Care
Physician / Group: Eduin
Diagnosis: Angioedema
PRN Pain Medication Management As Directed
May give lesser potent ordered pain med per pt: Yes
preference::
Protocol:: Medication orders for pain may be administered in a
manner that supports deferring to patient preference
when the pt is:
- Requesting an ordered lesser potent pain medication.
Least to most potent pain medications are defined
as: acetaminophen < NSAID < tramadol < opioids
(morphine, oxycodone, hydromorphone).
- Requesting a lesser dose of the same medication IF
ORDERED.
- Requesting a less intrusive route of administration
if both routes are prescribed by the provider (PO <
IV).
04/14/25 00:21
Code Status As Directed
Resuscitation Status: Full Code
04/14/25 00:23
Fluticasone/Salmeterol 115/21 [Advair Hfa 115/21 Mcg Inhaler] 2 puff INH R NOW STA
Abnormal Lab Results
04/13/25
22:36
WBC 11.2 H 10^3/uL
(4.8-10.8)
MCHC 30.9 L g/dL
(33.0-37.0)
Abs Immat Gran (auto) 0.1 H 10^3/uL
(0-0.05)
Absolute Neuts (auto) 8.2 H 10^3/uL
(1.4-6.5)
Absolute Monos (auto) 0.9 H 10^3/uL
(0.1-0.6)
Immature Gran % 0.7 H %
(0-0.5)
Lymphocytes % 16.6 L %
(20.5-51.1)
Sodium 133 L mmol/L
(135-145)
BUN 19 H mg/dl
(7-17)
Glucose 117 H mg/dl
(70-99)
04/13/25 22:36
04/13/25 22:36
Vital Signs
Initial and Last Documented VS:
Initial Vital Signs
Temp Pulse Resp BP Pulse Ox
98.7 F 81 16 154/67 98
04/13/25 19:37 04/13/25 19:37 04/13/25 19:37 04/13/25 19:37 04/13/25 19:37
Last Documented Vital Signs
Temp Pulse Resp BP Pulse Ox
98.7 F 78 15 132/51 97
04/13/25 19:37 04/14/25 00:00 04/14/25 00:00 04/13/25 22:22 04/14/25 00:00
<Az Connors Jr., PA-C - Last Filed: 04/14/25 00:36>
MDM/Problems Addressed
MDM/Problems Addressed:
64-year-old female presenting to the emergency department today with concerns of lower lip swelling starting this morning. On arrival vital signs are normal patient in no distress but does have significant swelling to the lower lip no evidence of
infection no redness or warmth posterior pharynx normal in appearance and patent lungs are clear no abdominal pain no signs of anaphylaxis. Case discussed with ENT recommending steroid and antihistamine but otherwise plan to admit for monitoring.
<Az Connors Jr., PA-C - Last Filed: 04/14/25 00:36>
*Pulse Oximetry
SaO2: 96
Oxygen Mode of Delivery: Room air
Patient hypoxic: no (97)
*Critical Care Note
Total Time (30-74mins, 75-104mins- exclusive of procedures): Not Applicable
ED Attending Note
<Az Connors Jr., PA-C - Last Filed: 04/14/25 00:36>
-
Portions of this chart may have been created with voice recognition software.� Occasional wrong word or��sound alike� substitutions may have occurred due to the inherent limitations of voice recognition software.
<Ying Germain MD - Last Filed: 04/14/25 00:10>
ED Attending Note
Patient seen and examined by attending physician: Yes
I performed the substantive portion of visit, reviewed & personally made and approve the management plan that is documented in note by myself or NAHOMI.: Yes
ED Attending Note:
Patient is breathing comfortably and appears nontoxic. Patient has significant diffuse lower lip edema. Tongue appears normal. Upper lip appears normal. No stridor. No protruding of tongue.
Discharge Plan
Departure
Patient Disposition: Admit
Date of Disposition: 04/14/25
Time of Disposition: 00:36
Admit to: Med/Surg
Admit to doctor: Eduin
Presentation/result/management discussed w/ accepting MD/DO: Hospitalist
Patient with high blood pressure during this ER visit?: No
Condition: Good
Covid-19: Not Applicable
Discharge Problem:
Angioedema
Prescriptions:
No Action
metoprolol tartrate 50 MG tablet
50 mg PO BID
vitamin B complex 1 EACH tablet
1 tab PO DAILY
metformin 500 MG tablet
500 mg PO DAILY
atorvastatin [Lipitor] 40 MG tablet
40 mg PO QPM Qty: 30 0RF
famotidine 10 mg Tablet
10 mg PO BID
lisinopril 10 mg Tablet
20 mg PO BID
montelukast 10 mg Tablet
10 mg PO DAILY
dexlansoprazole 60 mg Capsule,Biphase Delayed Releas
60 mg PO Q48H
Vitamins A,C,D,E
1 tab PO DAILY
Patient Comments:
all vitamins are separate - pt does not know dosage of each
fluticasone propion-salmeterol
1 - 2 puff inhalation BID
Patient Comments:
pt does not know mcg
Referrals:
UNKNOWN - PT DOES,NOT KNOW [Family Provider]
Interventions
Interventions:
*Risk Screen - Suicide Last Done: 04/13/25 19:37
*General Assessment Last Done: 04/13/25 19:37
*Neglect/Abuse Screening Last Done: 04/13/25 19:37
*ED- Fall Risk Assessment Last Done: 04/13/25 19:37
*ED COVID-19 Vaccine History Last Done: 04/13/25 19:37
*ED Influenza Vaccine History Last Done: 04/13/25 19:37
ED- Cardiac Assessment Last Done: 04/13/25 22:24
ED- Pulmonary Assessment Last Done: 04/13/25 21:06
ED-Skin Assessment Last Done: 04/13/25 21:06
Discharge Date and Time
Print Language: [place]EN[place]
[2025-04-14] VITALS (9 sets, daily range): BP systolic 118–147; BP diastolic 53–90; BMI 38.6
--- NOTE | 2025-04-14 00:23 | HPS.HSE ---
Family Physician
-
Family Physician: NOT KNOW UNKNOWN - PT DOES
Chief Complaint
-
Lip Swelling
History of Present Illness
Patient is a 64y F with PMH significant for hypertension, asthma and thyroid disease who presents to ED complaining of swelling of the lower lip and jaw. Patient states that she noted the swelling around 11AM today. Prior to that she had no
symptoms / complaints. The swelling most most pronounced in the lower lip with some sense of fullness in the jaw bilaterally. No slurred / thickened speech. No difficulty breathing / swallowing. No noted tongue swelling.
Patient denies any prior history of similar symptoms.
She is on lisinopril which she has been on for several years. Her last dose was this AM.
Medical History
Past Medical History
Past Medical History: Reports Other
Additional Past Medical History:
Hypertension
Meniere's Disease
GERD / Hiatal Hernia
Graves Disease s/p DESHPANDE
Psoriasis
Asthma
Obesity
Pituitary Tumor
DM-II
Past Surgical History: Reports Other
Additional Past Surgical History:
SVT Ablation
Left Tibia ORIF
Social History
Tobacco: Non-smoker
Alcohol: None
Drug: None
Family History
Family History: Not pertinent
Allergies / Home Medications
Allergies reflects when Allergies were last updated in [facility].
Home Medications with original date entered in [facility]
Allergy/Medication List:
Allergies
Allergy/AdvReac Type Severity Reaction Status Date / Time
alatrofloxacin mesylate Allergy Shortness Verified 04/13/25 19:41
(From Deonna) of Breath
aspartame (Aspartame) Allergy NAUSEA AND Verified 04/13/25 19:41
VOMITTING
erythromycin base Allergy Hives Verified 04/13/25 19:41
penicillin G Allergy Anaphylaxis Verified 04/13/25 19:41
Penicillins Allergy Anaphylaxis Verified 04/13/25 19:41
trovafloxacin mesylate (From Allergy Shortness Verified 04/13/25 19:41
Trovan) of Breath
BEE STINGS Allergy Anaphylaxis Uncoded 04/13/25 19:41
emycin Allergy Hives Uncoded 04/13/25 19:41
IODINE CONTRAST DYE Allergy Anaphylaxis Uncoded 04/13/25 19:41
IV CONTRAST Allergy Anaphylaxis Uncoded 04/13/25 19:41
OMNIFLOX Allergy Shortness Uncoded 04/13/25 19:41
of Breath
SEAFOOD Allergy due to Uncoded 04/13/25 19:41
iodine
allergy
TAZARECK Allergy Rash Uncoded 04/13/25 19:41
Home Medications
metoprolol tartrate 50 mg tablet 50 mg PO BID Blood pressure 04/07/14
vitamin B complex 1 tab PO DAILY Supplement 04/07/14
metformin 500 mg tablet 500 mg PO DAILY Diabetes 01/11/20
atorvastatin 40 mg tablet (Lipitor) 40 mg PO QPM #30 tabs 01/12/20
Vitamins A,C,D,E 1 tab PO DAILY 04/13/25
dexlansoprazole 60 mg capsule,biphase delayed release 60 mg PO Q48H 04/13/25
famotidine 10 mg tablet 10 mg PO BID 04/13/25
fluticasone propion-salmeterol 1 - 2 puff inhalation BID 04/13/25
lisinopril 10 mg tablet 20 mg PO BID 04/13/25
montelukast 10 mg tablet 10 mg PO DAILY 04/13/25
Review of Systems
-
History Source: Patient
A 12 point ROS was completed and negative except as noted: Yes
Constitutional: Denies Fever, Fatigue or Chills
EENT: Reports Mouth Swelling; Denies Sore Throat or Mouth Pain
Respiratory: Denies Cough or Trouble Breathing
Cardiac: Denies Chest Pain or Palpitations
Abdomen/GI: Denies Abdominal Pain, Nausea, Vomiting or Diarrhea
: Denies Dysuria or Frequency
Musculoskeletal: Denies Joint Pain or Edema
Neurological: Denies Dizzy or Headache
Physical Exam
Vital Signs
Vital Signs
Temp Pulse Resp BP Pulse Ox
98.7 F 78 15 132/51 97
04/13/25 19:37 04/14/25 00:00 04/14/25 00:00 04/13/25 22:22 04/14/25 00:00
Physical Exam
General: Other (64y F in no acute distress.)
HEENT: Moist mucous membranes, PERRLA and Other (Edema of the lower lip - L > R. No swelling of the tongue / oral mucosa. No drooling, dyspnea, dysarthria.)
Respiratory: Clear; No Wheezes, Rales or Rhonchi
Cardiac: S1/S2 and Regular Rhythm; No Murmur
GI: Soft, Non Tender, Non Distended and Normal Bowel Sounds
Musculoskeletal: No Clubbing, No Cyanosis and No Edema
Neuro: AO x 3
Laboratory Results
-
04/13/25 22:36
04/13/25 22:36
Impression/Plan
-
A/P: Patient is a 64y F with PMH significant for hypertension, DM-II and thyroid disease who presents to ED complaining of swelling of the lower lip since this AM.
Angioedema
- Observe overnight for further evaluation.
- Fairly mild symptoms at present with no evident involvement of the posterior oropharynx or airway.
- Hold further SARA inhibitors permanently.
- Continue treatment / supportive care with steroids, histamine blockade, etc.
- Follow for any new / worsening symptoms or any evidence of airway compromise.
Benign Hypertension
- Continue metoprolol with holding parameters,.
- Discontinue lisinopril as noted above.
DM-II
- Stable. Hold metformin acutely.
- Follow glucose and cover with SSI as needed.
- Update A1C.
Asthma without Acute Exacerbation
- Stable. Continue usual Symbicort or similar.
- Albuterol PRN.
Obesity due to excess calories
- Affects all aspects of care.
- Encourage healthy diet and increased activity with goal of weight loss.
DVT Prophylaxis: SCDs
Code Status: Full
--- NOTE | 2025-04-14 00:37 | EDRN ---
TT to RT for advair
[2025-04-14] MEDS: ADVAIR HFA 115/21 MCG INHALER 2 PUFF INH ×2 (00:55→08:27)
--- NOTE | 2025-04-14 01:24 | EDRN ---
Report given to Natalia in ICU
--- NOTE | 2025-04-14 01:59 | EDRN ---
TT to Amber ARITA who confirmed the concern for pt is rebound swelling. She advised speaking with Dr Denny about this. This RN updated pt and pt agrees to stay for monitoring since the concern is rebound swelling with potential airway
involvement. Pt says she does not need to discuss going home with a provider now.
[2025-04-14] MEDS: BENADRYL 25 MG PO ×3 (03:11→11:25)
--- NOTE | 2025-04-14 03:24 | PTCARENOTE ---
Pt arrived from ER to room 3357 at approx 0235, pt is IMU level of care. Ambulatory from stretcher to bed, and able to ambulate independently around the room. Telemetry pack placed on patient. Admission database completed. SR 70s on monitor, SpO2
97% on RA. Physical assessment as documented in nursing shift assessment flowsheet. Lower lip noted to be slightly swollen but no other edema noted--pt feels as though the area around her jaw is swollen but this is not obvious when looking at the
patient. Pt with no other complaints. Pt requesting Benadryl for sleep, TT sent to Amber ARITA and x1 dose of Benadryl ordered/administered.
[2025-04-14 03:46] LABS: Hematocrit 37.3 % (37.0-47.0); Hemoglobin 12.1 g/dL (12.0-16.0); Mean Corp Hgb Conc. 32.4 g/dL (33.0-37.0); Mean Corpuscular Volume 85.4 fL (81.0-99.0); Platelet Count 397 10^3/uL (130-400); Red Cell Dist. Width 12.0 % (11.5-14.5)
[2025-04-14 04:08] LABS: Blood Urea Nitrogen 19 mg/dl (7-17); Calcium 9.4 mg/dl (8.4-10.2); Carbon Dioxide 19 mmol/L (22-30); Chloride 102 mmol/L (98-107); Estimated Creatinine Clearance 95 ml/min; Glucose 220 mg/dl (70-99); Potassium 4.4 mmol/L (3.5-5.1); Sodium 132 mmol/L (135-145); eGFR > 60.00
[2025-04-14] MEDS: NOVOLOG FLEXPEN-LOW RESISTANCE 1 UNITS SC ×2 (07:22→11:52)
[2025-04-14 07:24] LABS: Glucose - Point of Care 184 mg/dl (70-99)
[2025-04-14] MEDS: CLARITIN 10 MG PO (07:28)
[2025-04-14] MEDS: DELTASONE 40 MG PO (07:28)
[2025-04-14] MEDS: LOPRESSOR 50 MG PO (07:28)
[2025-04-14] MEDS: SINGULAIR 10 MG PO (07:28)
[2025-04-14] MEDS: PEPCID 20 MG PO (07:28)
[2025-04-14 08:40] LABS: Glycohemoglobin (HgbA1c) 6.2 % (4.0-5.9)
--- NOTE | 2025-04-14 08:44 | PTCARENOTE ---
report received. assessments per work list. patient with improved swelling lower lip and jaw. no distress. lungs clear, no stridor. tolerating diet. ambulatory in room. call roldan in reach
[2025-04-14 11:58] LABS: Glucose - Point of Care 189 mg/dl (70-99)
--- NOTE | 2025-04-14 13:38 | W.PN.HOSP.TC ---
Addendum entered and electronically signed by Orin Self MD 04/14/25 15:55:
I saw and evaluated the patient independently. I reviewed and discussed the resident�s note and agree with findings and plan as documented by Dr. Farfan.
GENERAL: well developed, well nourished, female in no apparent distress
HEENT: NC/AT--no stridor--lower lip much less swollen compared to picture on her phone
HEART: regular rate and rhythm, +S1, +S2
LUNGS : clear to auscultation bilaterally--no wheezing
ABDOM: soft, nontender, nondistended, + bowel sounds
EXT: no cyanosis, clubbing, or edema
NEUROLOGIC: grossly intact
Angioedema--most likely due to lisinopril--improved with IV steroids, benadryl--would discontinue SARA and not use moving forward--OK for d/c with tapering steroids and benadryl--pt carries an Epi pen with her at all times due to her bee sting allergy
Essential hypertension--cont metoprolol--follow up with PCP for further BP management since stopping lisinopril
Type 2 DM--well controlled--restart metformin--since sending on tapering steroid therapy, will give prandin with meals (also tapering dose) until steroids weaned off--HGB A1C 6.2%
Asthma without acute exacerbation--Continue usual Symbicort--Albuterol PRN
Obesity due to excess calories--Encourage healthy diet and exercise plan to achieve weight loss goal
DVT Proph--SCDs
Code Status--Full code
Original Note:
Today's Communication/Plan
-
Stop Lisinopril as a home medication
Continue Metoprolol
Continue Metformin
Continue Albuterol PRN
Monitor BP at home
Complete medication regimen
Assessment / Plan
Assessment / Plan
Impression:
Patient swelling and redness reduced over the course of her hospital stay.
Patient seems to be more comfortable now and less anxious.
Patient may have had ACEi induced angioedema.
Plan:
#Angioedema
Observe patient overnight for further evaluation
Monitor for increasing severity of symptoms with involvement of posterior oropharynx for airway
Follow-up for any new or worsening symptoms or any evidence of airway compromise.
Hold further SARA inhibitors permanently (lisinopril)
Continue treatment/supportive care with steroids/histamine blockade.
Follow-up for any new or worsening symptoms or any evidence of airway compromise.
#Benign hypertension
Discontinue lisinopril as noted above
Continue metoprolol
#DM 2
Stable
Continue metformin at home
Continue to monitor glucose at home.
Updated A1c is =6.2%
#Asthma without acute exacerbation
Stable
Continue usual Symbicort
Albuterol PRN
#Obesity due to excess calories
Encourage healthy diet and exercise plan to achieve weight loss goal
DVT PPx: SCDs
Code Status: Full
Anticipated Discharge: Today
Subjective/Interval History
-
Date of Service: April 14, 2025
Patient is a 64-year-old female with a PMH significant for HTN, GERD, DM2 and asthma who presents to the ED on 04/13/2025 with complaints of swelling of the lower lip and jaw.
Patient states that she noted the swelling around 11 AM.
Prior to that she had no symptoms or complaints.
Swelling is most pronounced in the lower lip with some sense of fullness in the jaw bilaterally.
She did not suffer from slurred or thickened speech.
She had no difficulty breathing or swallowing.
There was no tongue swelling.
Patient denies any prior history of similar symptoms.
She does note that she has been on Lisinopril for several years.
Her last dose of Lisinopril was this morning.
Objective Data
-
Labs:
Laboratory Results
04/14/25
03:20
WBC 11.6 H
Hgb 12.1
Hct 37.3
Plt Count 397 D
Sodium 132 L
Potassium 4.4
Chloride 102
Carbon Dioxide 19 L
BUN 19 H
Creatinine 0.7
Glucose 220 H
Calcium 9.4
Vital Signs:
Vital Signs
Temp Pulse Resp BP Pulse Ox
98.3 F 79 16 146/61 97
04/14/25 13:28 04/14/25 12:00 04/14/25 08:30 04/14/25 11:27 04/14/25 13:28
I&O
04/13/25 04/14/25 04/15/25
05:59 06:59 06:59
Intake Total 480 / 480 960 / 960
Balance 480 / 480 960 / 960
Review of Systems
-
History Source: Patient
All other systems: Reviewed and negative
Skin: Reports Rash
Physical Exam
-
General: Well Developed, Well Nourished, No Apparent Distress and Comfortable
HEENT: Normocephalic and Atraumatic
Respiratory: Clear to Auscultation
Cardiac: Regular Rhythm and S1/S2
Breast: Deferred by me
GI: Soft, Nontender, Nondistended and Normal Bowel Sounds
Musculoskeletal: No Clubbing, No Cyanosis and Other (mild edema of the lower face/jawline area. )
Neuro: AO x 3 and No Motor Deficits
Psych: Calm and Intact Judgement/Insight
Data Reviewed
-
Labs: Labs Reviewed by me and Discussed with Physician
--- NOTE | 2025-04-14 14:05 | W.DCSUMMARY ---
Addendum entered and electronically signed by Orin Self MD 04/14/25 16:00:
Read, reviewed, and agree. See same day progress note for additional details. Time spent coordinating care, DC planning, review of DC plan of care with resident, transition of care, review of records in EMR, med rec, consults, notes, d/w
consultants, nursing, family, and CM = 32 minutes.
Angioedema is presumed to be due to her lisinopril. She took her morning dose and then at 11 AM developed lip swelling. Lisinopril was discontinued and not recommended to resume as outpatient. Blood pressures here have been stable (139/63 at
discharge). She should follow-up with her primary care physician (Dr. Kam Hanley) for further blood pressure adjustment if necessary. She will be sent home with a tapering steroid dose as well as Prandin (patient states that the steroids
will elevate her blood sugars) also with tapering dose (once patient reaches 20 mg of prednisone daily can decrease from 1 mg of Prandin with meals to 0.5 mg with meals).
Original Note:
Discharge Summary
Discharge Data
Date of Admission: 04/14/25
Date of Discharge: 04/14/25
-
Pending Results: No
Hospital Course
Discharging Physician : Dr. Orin Self, Dr. Joao Farfan
Disposition : Home
Primary care physician : Not known to Patient
Principal Discharge diagnosis : Angioedema
Chronic Discharge diagnosis : Benign hypertension, type 2 diabetes mellitus, asthma without acute exacerbation, obesity due to excess calories
Hospital Course : 64-year-old female past ministry of hypertension hyperlipidemia diabetes presenting to the emergency department today with concerns of swelling of lower lip starting this morning denies any specific trauma. She denies any nausea,
vomiting, fever, diarrhea constipation. Upon arrival, her home dose of Lisinopril was head she was given Decadron 10 mg IV stat as well as Benadryl 25 mg IV stat. Her CBC with differential and BMP blood work ordered on she was admitted to the IMU
and diagnosed with angioedema. Patients pain was treated with medication as needed. She was kept for overnight observation, at which point her lower lip and facial swelling around the jaw area had significantly reduced. Her medication was updated
and sent to her pharmacy of preference. Patient is ready for discharge. She is advised to follow up with her regular PCP who can run some additional blood work and recheck her lower lip
Important imaging findings : N/A
Procedure findings : N/A
Discharge Plan
-
Patient Disposition: Home (Routine Discharge)
Discharge Diagnosis/Procedures: Angioedema, benign hypertension, type 2 diabetes mellitus, asthma without acute exacerbation, obesity due to excess calories
Condition: Good
Diet: Diabetic, Carb Controlled
Activity: No restrictions
Driving Restrictions: As prior to admission
Bathing Restrictions: None
Blood Work: CBC and CMP in 1 week at PCP office
Instructions: Angioedema, Allergic reaction - ED (DC)
Referrals:
UNKNOWN - PT DOES,NOT KNOW [Family Provider]
Prescriptions:
New
loratadine 10 mg Tablet
10 mg PO DAILY Qty: 30 0RF
prednisone 20 mg Tablet
See Taper PO DAILY Qty: 30 0RF
Taper: Prednisone DC Starting at 40 mg daily
40 mg Daily for 3 Days and 0 Hour
30 mg Daily for 3 Days and 0 Hour
20 mg Daily for 3 Days and 0 Hour
10 mg Daily for 3 Days and 0 Hour
repaglinide 1 mg tablet
1 mg PO TID Qty: 90 0RF
Rx Instructions:
Gill thru Pred. taper, reduce repaglinide to 0.5 mg TID
STOP Repaglinide once Pred.taper complete
Continued
metoprolol tartrate 50 MG tablet
50 mg PO BID
vitamin B complex 1 EACH tablet
1 tab PO DAILY
metformin 500 MG tablet
500 mg PO DAILY
atorvastatin [Lipitor] 40 MG tablet
40 mg PO QPM Qty: 30 0RF
famotidine 10 mg Tablet
10 mg PO BID Qty: 0 0RF
montelukast 10 mg Tablet
10 mg PO DAILY Qty: 0 0RF
dexlansoprazole 60 mg Capsule,Biphase Delayed Releas
60 mg PO Q48H Qty: 0 0RF
Vitamins A,C,D,E
1 tab PO DAILY Qty: 0 0RF
Patient Comments:
all vitamins are separate - pt does not know dosage of each
fluticasone propion-salmeterol
1 - 2 puff inhalation BID Qty: 0 0RF
Patient Comments:
pt does not know mcg
Discontinued
lisinopril 10 mg Tablet
20 mg PO BID
Discharge Orders:
Discharge Patient (As Directed); Ordered 04/14/25
Ordered By: Joao Farfan
Discharge Date and Time
Discharge Date/Time: 04/14/25 14:00
Print Language: BENINESE
--- NOTE | 2025-04-14 14:35 | CM ---
Patient seen at bedside with physicians earlier today in ICU. Patient admitted as OBS/YU and form completed and signed placed on chart. Patient states that she lives with her son in her home and that she does have a walker and wheelchair at home
for when she needs them. Patient still uses the [facility] and she uses the [facility] on [facility] for medications. Patient plan is for discharge home today. Patient confirms that she has no needs at this time. CM will continue to
follow for discharge planning needs.
Plan; home with no needs.
== END 2025-04-14 14:00 | disposition home or self-care (01) ==
LOC: ICU 00:42
PROVIDERS: Physician Assistant; ADMITTING PHYSICIAN Hospitalist; ATTENDING PHYSICIAN Internal Medicine; EMERGENCY PHYSICIAN Emergency Medicine
DX: T78.3XXA Angioneurotic edema, initial encounter (principal); X58.XXXA Exposure to other specified factors, initial encounter; I10 Essential (primary) hypertension; E78.5 Hyperlipidemia, unspecified; E11.9 Type 2 diabetes mellitus without complications; E66.09 Other obesity due to excess calories; Z68.38 Body mass index [BMI] 38.0-38.9, adult; J45.909 Unspecified asthma, uncomplicated; Z79.84 Long term (current) use of oral hypoglycemic drugs; H81.09 Meniere's disease, unspecified ear
CPT/HCPCS: 80048; 82962; 83036; 85025; 85027; 94640; 99285; G0378

== ENCOUNTER 2025-04-27 01:33 | Emergency (ER) | payer OTHER, SELFPAY ==
[2025-04-27 01:33] VITALS: BMI 39.6
[2025-04-27 01:36] VITALS: BP 120/74
[2025-04-27 02:16] VITALS: BP 141/72
[2025-04-27 02:35] LABS: Hematocrit 34.8 % (37.0-47.0); Hemoglobin 11.7 g/dL (12.0-16.0); Mean Corp Hgb Conc. 33.6 g/dL (33.0-37.0); Mean Corpuscular Volume 81.5 fL (81.0-99.0); Nucleated Red Blood Cells % 0 %; Platelet Count 452 10^3/uL (130-400); Red Cell Dist. Width 12.6 % (11.5-14.5)
[2025-04-27 02:49] LABS: ALT (SGPT) 19 U/L (0-35); AST (SGOT) 22 U/L (14-36); Albumin 3.7 g/dl (3.5-5.0); Alkaline Phosphatase 86 U/L (38-126); Blood Urea Nitrogen 12 mg/dl (7-17); Calcium 9.3 mg/dl (8.4-10.2); Carbon Dioxide 25 mmol/L (22-30); Chloride 103 mmol/L (98-107); Glucose 138 mg/dl (70-99); Potassium 4.5 mmol/L (3.5-5.1); Sodium 136 mmol/L (135-145); Total Protein 7.0 g/dl (6.3-8.2); eGFR > 60.00
[2025-04-27] MEDS: OMNIPAQUE 50 ML PO (02:53)
[2025-04-27 03:48] VITALS: BP 129/63
[2025-04-27 04:00] VITALS: BP 136/61
--- NOTE | 2025-04-27 06:34 | ED.GENMED ---
History of Present Illness
General
Chief Complaint: Abdominal Pain
Time Seen by Provider: 04/27/25 02:11
History of Present Illness
History of Present Illness:
See MDM
Past History
Past History
ED Past Medical History: Arrthythmia (Specifics unknown), GERD, HTN and Other (Peptic ulcer disease, Graves' disease, back problems, diverticulitis, M�ni�re's disease)
ED Past Surgical History: Other (Oral surgery)
Social History
Tobacco: Non-smoker
Alcohol: None
Drug: None
Personal: Single
Living: with family
Employment: Employed
Family History
Family History: Other (Mother with A-fib)
Phy Exam
Physical Exam
Physical Exam:
See MDM
Course
Orders/Labs/Results
Orders:
Orders
04/27/25 02:16
Iohexol [Omnipaque] See Protocol PO NOW STA
04/27/25 02:17
CT Abd/pel (oral only)-[facility] Only Urgent
Comment:
Reason For Exam: RLQ pain
04/27/25 02:27
Complete Blood Count/With Diff Urgent
Comprehensive Metabolic Panel Urgent
04/27/25 04:49
Ondansetron Injectable [Zofran] 4 mg IV NOW STA
04/27/25 06:33
Doxycycline [Vibramycin] 100 mg PO NOW STA
Abnormal Lab Results
04/27/25
02:27
WBC 13.5 H 10^3/uL
(4.8-10.8)
Hgb 11.7 L g/dL
(12.0-16.0)
Hct 34.8 L %
(37.0-47.0)
Plt Count 452 H 10^3/uL
(130-400)
Abs Immat Gran (auto) 0.1 H 10^3/uL
(0-0.05)
Absolute Neuts (auto) 10.2 H 10^3/uL
(1.4-6.5)
Absolute Monos (auto) 1.2 H 10^3/uL
(0.1-0.6)
Immature Gran % 0.6 H %
(0-0.5)
Lymphocytes % 12.8 L %
(20.5-51.1)
Glucose 138 H mg/dl
(70-99)
04/27/25 02:27
04/27/25 02:27
Vital Signs
Initial and Last Documented VS:
Initial Vital Signs
Temp Pulse Resp BP Pulse Ox
97.1 F 96 20 120/74 97
04/27/25 01:36 04/27/25 01:36 04/27/25 01:36 04/27/25 01:36 04/27/25 01:36
Last Documented Vital Signs
Temp Pulse Resp BP Pulse Ox
98.7 F 86 20 136/61 99
04/27/25 04:00 04/27/25 04:00 04/27/25 04:00 04/27/25 04:00 04/27/25 04:00
MDM/Problems Addressed
Differential Diagnosis Includes:
Note:
CHIEF COMPLAINT(S)
Abdominal pain.
HISTORY OF PRESENT ILLNESS
This is a 64-year-old female with a history of recent allergic reaction to lisinopril, now presenting with lower right quadrant abdominal pain. The patient reports that the pain started in the late afternoon and has never occurred in this location
before. She has a familial history of appendicitis and states that her sisters appendicitis was treated with intravenous antibiotics. The patients appendix is still intact. Six weeks prior, she developed an allergic reaction and began a tapered
regimen of prednisone, which ended today. She believes that the cessation of steroid therapy might have contributed to current inflammation or could have masked underlying conditions. The patient is concerned about steroid-induced colitis or the
possibility of a bacterial infection. She reports one episode of nausea today but denies vomiting or urinary symptoms. She also reports that her bowel movements have been slowed due to the steroids but denies diarrhea.
PAST MEDICAL AND SURGICAL HISTORY
Allergic reaction to lisinopril six weeks ago. Patient has been on a prednisone taper for the past 12 days (starting from 40mg down to 10mg).
CHRONIC MEDICAL CONDITIONS SIGNIFICANTLY AFFECTING CARE
Chronic conditions affecting care include allergies to medications.
PHYSICAL EXAM
General: Alert, no acute distress.
Skin: Warm, dry.
Head: Normocephalic, atraumatic
Neck: Appears supple, trachea midline.
Eyes, Ears, Nose, Mouth, and Throat: Moist mucous membranes
Cardiovascular: No signs of cyanosis
Respiratory: Respirations are non-labored.
Abdomen: Non-distended. Very mild right lower quadrant tenderness without rebound
Musculoskeletal: No deformities
Neurological: No focal neurological deficit observed.
Psychiatric: Cooperative, appropriate mood and affect.
EXTERNAL RECORDS REVIEWED
The patient has a familial history of appendicitis, as mentioned regarding her sister. No specific external records reviewed or indicated.
PLAN
A computed tomography (CT) scan was planned to evaluate for appendicitis or other potential causes of right lower quadrant pain. Blood work and possibly a urine test are to be conducted to aid diagnostic evaluation.
DIFFERENTIAL DIAGNOSIS
The Differential Diagnosis includes, in no particular order and is not limited to:
- Appendicitis
- Steroid-induced colitis
- Bacterial infection
- Gastrointestinal inflammation due to cessation of steroids
- Other causes of lower abdominal pain
SUMMARY OF ENCOUNTER
The patient was evaluated in the emergency department due to new onset right lower quadrant abdominal pain with a relevant history of recent steroid taper following an allergic reaction to lisinopril. Considering the patients family history and
current symptomatology, a CT scan was deemed necessary to investigate the cause of her symptoms, particularly to rule out appendicitis. Her choice to avoid pain medication was respected to avoid masking symptoms during the diagnostic process.
MEDICAL DECISION MAKING
- Number and Complexity of Problems Addressed: Chronic conditions affecting care include allergies to medications. Differential Diagnosis list includes possible appendicitis, steroid-induced colitis, and bacterial infection among other differential
diagnoses for abdominal pain.
- Data:
Category 1: Tests and documents
- Blood work and a CT scan were ordered.
- Risk:
Prescription medication management was not initiated per the patients request.
DIAGNOSIS
- Evaluation for potential Appendicitis (ICD-10: K35.80)
- Possible Colitis secondary to steroid use (ICD-10: K52.9)
No further sections were discussed or mentioned in the transcript.
CARE-UPDATE
04/27/25 - 06:32
CT imaging reveals a right lower quadrant phlegmon with a non-specific origin; the appendix is not visualized. The patient reports improvement in symptoms upon reassessment. Due to a history of anaphylaxis, the patient cannot tolerate IV contrast.
We suspect early appendicitis and will initiate antibiotic therapy with doxycycline. The patient is agreeable to treatment and discharge.
Disposition:
SUMMARY OF ENCOUNTER
The 64-year-old female presented to the emergency department with new onset right lower quadrant abdominal pain, raising concern for appendicitis. The patient has a history of allergic reaction to IV contrast, limiting the use of standard imaging
protocols for appendicitis. Blood work revealed mild leukocytosis, which was considered in the context of her previous steroid taper. A CT scan, without IV contrast, identified a right lower quadrant phlegmon, but the appendix was not visualized.
The patient declined a pelvic ultrasound. Considering the imaging findings and clinical picture, prophylactic antibiotics were initiated as a precautionary measure against early appendicitis. The patient was advised to return to the emergency
department immediately if symptoms worsened.
DISPOSITION
Discharge
ASSESSMENT
Abdominal pain in the right lower quadrant with suspicion of early appendicitis based on CT findings, complicated by limitations due to the patient�s contrast allergy.
PLAN
Initiate antibiotic therapy with doxycycline as a prophylactic measure against early appendicitis. Instruct the patient to return immediately if symptoms worsen. Avoid use of IV contrast in future evaluations due to history of anaphylaxis.
INDEPENDENT REVIEW OF LABS AND INTERPRETATION OF TESTS
My independent review of the CBC indicates mild leukocytosis.
DIAGNOSIS
- Suspicion of early appendicitis (ICD-10: K35.80)
- Mild leukocytosis (ICD-10: D72.829)
PATIENT EDUCATION AND COUNSELING
The patient was counseled on the limitations of imaging without IV contrast and the need for close monitoring of symptoms. Emphasis was placed on the importance of returning to the emergency department if there is any worsening of her condition.
FOLLOW-UP INSTRUCTIONS
The patient was instructed to return to the emergency department immediately if her symptoms worsen.
MEDICATION RECONCILIATION
Antibiotic therapy with doxycycline was prescribed.
MEDICAL DECISION MAKING
- Number and Complexity of Problems Addressed: Chronic conditions affecting care include allergies to medications. Differential Diagnosis includes possible appendicitis, steroid-induced colitis, and bacterial infection.
- Data:
Category 1: Blood work was ordered and reviewed. A CT scan was independently reviewed indicating right lower quadrant phlegmon without appendix visualization.
- Risk: Prescription medication management was prescribed. Consideration of Admission/Observation: Escalation of care including admission/observation was considered given the complexity and risk of the patients presenting complaint and exam
findings. However, the patient agreed with discharge and was instructed on signs to seek immediate care, with current reassessment and stability ensuring safe discharge with close follow-up.
*Pulse Oximetry
SaO2: 99
Oxygen Mode of Delivery: Room air
Patient hypoxic: no
*Critical Care Note
Total Time (30-74mins, 75-104mins- exclusive of procedures): Not Applicable
ED Attending Note
-
Portions of this chart may have been created with voice recognition software.� Occasional wrong word or��sound alike� substitutions may have occurred due to the inherent limitations of voice recognition software.
Discharge Plan
Departure
Patient Disposition: Home (Routine Discharge)
Date of Disposition: 04/27/25
Time of Disposition: 06:34
Patient with high blood pressure during this ER visit?: No
Discharge Problem:
Abdominal pain
Instructions: Abdominal Pain
Prescriptions:
New
doxycycline hyclate 100 mg capsule
100 mg PO BID Qty: 14 0RF
No Action
metoprolol tartrate 50 MG tablet
50 mg PO BID
vitamin B complex 1 EACH tablet
1 tab PO DAILY
metformin 500 MG tablet
500 mg PO DAILY
loratadine 10 mg Tablet
10 mg PO DAILY Qty: 30 0RF
prednisone 20 mg Tablet
See Taper PO DAILY Qty: 30 0RF
Taper: Prednisone DC Starting at 40 mg daily
40 mg Daily for 3 Days and 0 Hour
30 mg Daily for 3 Days and 0 Hour
20 mg Daily for 3 Days and 0 Hour
10 mg Daily for 3 Days and 0 Hour
atorvastatin [Lipitor] 40 MG tablet
40 mg PO QPM Qty: 30 0RF
famotidine 10 mg Tablet
10 mg PO BID Qty: 0 0RF
montelukast 10 mg Tablet
10 mg PO DAILY Qty: 0 0RF
dexlansoprazole 60 mg Capsule,Biphase Delayed Releas
60 mg PO Q48H Qty: 0 0RF
Vitamins A,C,D,E
1 tab PO DAILY Qty: 0 0RF
Patient Comments:
all vitamins are separate - pt does not know dosage of each
fluticasone propion-salmeterol
1 - 2 puff inhalation BID Qty: 0 0RF
Patient Comments:
pt does not know mcg
repaglinide 1 mg tablet
1 mg PO TID Qty: 90 0RF
Rx Instructions:
[place] thru Pred. taper, reduce repaglinide to 0.5 mg TID
STOP Repaglinide once Pred.taper complete
Referrals:
Miri Leach CRNP [Family Provider, Internal Medicine]
Activity Restrictions/Additional Instructions:
Please return for any worsening symptoms.
You may return at any time if you have further concerns.
Please follow up with your doctor at the first available appointment, preferably this week.
As we discussed, the CT noted swelling in the right lower abdomen. The appendix cannot be visualized. Given your history, we started antibiotics as prophylaxis in case this was early appendicitis. As we discussed, please return immediately for
worsening symptoms as you may require another CT scan.
Thank you for choosing [facility].
Interventions
Interventions:
*Risk Screen - Suicide Last Done: 04/27/25 01:36
*General Assessment Last Done: 04/27/25 05:19
*Neglect/Abuse Screening Last Done: 04/27/25 01:36
*ED- Fall Risk Assessment Last Done: 04/27/25 05:19
*ED COVID-19 Vaccine History Last Done: 04/27/25 05:19
*ED Influenza Vaccine History Last Done: 04/27/25 05:19
KN-[id number] Assessment Last Done: 04/27/25 02:31
Discharge Date and Time
Print Language: TURKMEN
[2025-04-27] MEDS: VIBRAMYCIN 100 MG PO (06:44)
== END 2025-04-27 06:49 | disposition home or self-care (01) ==
LOC: EMR 01:33
PROVIDERS: EMERGENCY PHYSICIAN Student in an Organized Health Care Education/Training Program; FAMILY PHYSICIAN Nurse Practitioner Primary Care
DX: R10.31 Right lower quadrant pain (principal); I10 Essential (primary) hypertension; E05.00 Thyrotoxicosis with diffuse goiter without thyrotoxic crisis or storm; K21.9 Gastro-esophageal reflux disease without esophagitis; Z87.11 Personal history of peptic ulcer disease; Z87.892 Personal history of anaphylaxis; Z91.041 Radiographic dye allergy status
CPT/HCPCS: 99284; 74176; 80053; 85025

== ENCOUNTER → 2025-05-02 10:17 | Outpatient (REF) | payer OTHER, SELFPAY | LOC: RAD 10:17 | PROVIDERS: ATTENDING PHYSICIAN Nurse Practitioner Primary Care | DX: R19.00 Intra-abdominal and pelvic swelling, mass and lump, unspecified site (principal); K38.8 Other specified diseases of appendix; R93.89 Abnormal findings on diagnostic imaging of other specified body structures | CPT/HCPCS: 76830; 76856 ==

== ENCOUNTER 2025-05-11 05:05 | Emergency (ER) | payer OTHER, SELFPAY ==
[2025-05-11 05:09] VITALS: BP 150/69
[2025-05-11 05:54] VITALS: BMI 38.9
--- NOTE | 2025-05-11 06:05 | EDRN ---
Pt says she is having to exert herself to breathe. Pt diagnosed with bronchitis on Monday, started on doxycycline and cough medicine with codeine. Pt says her doctor is reluctant to put her on more steroids as she recently finished a 12 day
steroid taper. No chest pain, pt feels 'My bronchial tubes are clenched.' No chills. Intermittent fever pt says is more likely to recent ovarian and uterine masses she was diagnosed with for which she is seeing a surgeon soon. Dry cough. Abd
pain from masses. Nausea. Pt vomited 'earlier today.'
[2025-05-11 06:11] VITALS: BP 121/53
[2025-05-11 07:33] LABS: ALT (SGPT) 15 U/L (0-35); AST (SGOT) 23 U/L (14-36); Albumin 2.8 g/dl (3.5-5.0); Alkaline Phosphatase 79 U/L (38-126); Blood Urea Nitrogen 13 mg/dl (7-17); Calcium 8.1 mg/dl (8.4-10.2); Carbon Dioxide 28 mmol/L (22-30); Chloride 95 mmol/L (98-107); Estimated Creatinine Clearance 112 ml/min; Glucose 115 mg/dl (70-99); Potassium 4.8 mmol/L (3.5-5.1); Sodium 128 mmol/L (135-145); Total Protein 5.9 g/dl (6.3-8.2); eGFR > 60.00
--- NOTE | 2025-05-11 07:33 | ED.GENMED ---
History of Present Illness
General
Chief Complaint: Breathing Problem
Source: patient
Exam Limitations: none
Time Seen by Provider: 05/11/25 06:59
Nursing documentation reviewed up to this point in time: agreed with
History of Present Illness
History of Present Illness:
The patient is a 64-year-old female with a past medical history of asthma who reports wheezing for 3 to 4 days. Patient reports that she feels as though she is having an exacerbation of her asthma. Patient reports she was evaluated by her nurse
practitioner yesterday and started on doxycycline. She has not yet been started on prednisone but feels she needs this. Patient reports she has been using her rescue inhaler every 4 hours at home which has been helping with symptoms but still
feels as though prednisone would improve symptoms. Patient denies chest pain. Patient reports that with her uterine mass, she always gets low-grade fever. Patient reports that when she is put on prednisone, she also gets started on Prandin for
elevated blood sugars.
Past History
Past History
ED Past Medical History: Arrthythmia (Specifics unknown), Asthma, GERD, HTN and Other (Peptic ulcer disease, Graves' disease, back problems, diverticulitis, M�ni�re's disease)
ED Past Surgical History: Other (Oral surgery)
Social History
Tobacco: Non-smoker
Alcohol: None
Drug: None
Personal: Single
Living: with family
Employment: Employed
Family History
Family History: Other (Mother with A-fib)
Review of Systems
Review of Systems
Allergies reviewed?: Yes
All Other Systems: ROS reviewed and negative except as documented in HPI and ROS
Constitutional: Reports fatigue
EENT: Reports no symptoms
Respiratory: Reports cough and trouble breathing
Cardiac: Reports no symptoms
ABD/GI: Reports no symptoms
: Reports no symptoms
Musculoskeletal: Reports no symptoms
Skin: Reports no symptoms
Neurological: Reports no symptoms
Endocrine: Reports no symptoms
Hematologic/Lymphatic: Reports no symptoms
Psychiatric: Reports no symptoms
Phy Exam
Physical Exam
Physical Exam:
Physical Exam
General: no apparent distress, not acutely ill. Nontoxic, no respiratory distress. Appears well and comfortable
Neck: supple. no meningeal signs. normal psoterior pharynx
Heart: s1/s2 regular rate and rhythm, no murmur. equal radial pulses.
Lungs: no acute respiratory distress. No obvious wheezing. Questionably long expiratory phase. Speaking in full sentences comfortably. Occasional cough
Abdomen: normal bowel sounds. Mild right lower abdominal distention and tenderness. Patient reports that this tenderness and distention is very similar to what is been over the last 2 weeks. No sign of peritonitis on exam.
Neuro: alert and oriented. no focal neurological deficits
Skin: no rash
Psychiatric: well kept. interactive and cooperative
Extremities: no edema. no calf tenderness. negative homans. good distal pulses
Scores
Heart Failure Risk
Heart Failure Risk Score: Not Applicable
Course
Orders/Labs/Results
Orders:
Orders
05/11/25 06:52
CXR2 [CR Chest - 2 Views ] Urgent
Comment:
Reason For Exam: SOB
05/11/25 07:09
CMP [Comprehensive Metabolic Panel] Urgent
Complete Blood Count/With Diff Urgent
05/11/25 07:28
Ipratropium/Albuterol Sulfate [Duoneb] 3 ml INH R NOW ONE
Prednisone [Deltasone] 40 mg PO NOW STA
05/11/25 07:43
Electrocardiogram (*1) Urgent
Reason for Study: Shortness of Breath
EKG- Treatment ONCE
05/11/25 08:04
0.9% Sodium Chloride 1000 ml [Nss] 1,000 ml IV BOLUS
05/11/25 09:59
Type+Screen Urgent
05/11/25 10:44
CT Abd/pel Without Iv Or Oral Urgent
Comment:
Reason For Exam: blood loss anemia, R ovarian mass
05/11/25 10:50
Ipratropium/Albuterol Sulfate [Duoneb] 3 ml INH R NOW ONE
Abnormal Lab Results
05/11/25
07:09
WBC 13.0 H 10^3/uL
(4.8-10.8)
RBC 3.25 L 10^6/uL
(4.20-5.40)
Hgb 8.8 L g/dL
(12.0-16.0)
Hct 27.6 L %
(37.0-47.0)
MCHC 31.9 L g/dL
(33.0-37.0)
Abs Immat Gran (auto) 0.1 H 10^3/uL
(0-0.05)
Absolute Neuts (auto) 10.3 H 10^3/uL
(1.4-6.5)
Absolute Lymphs (auto) 1.1 L 10^3/uL
(1.2-3.4)
Absolute Monos (auto) 1.4 H 10^3/uL
(0.1-0.6)
Immature Gran % 1.1 H %
(0-0.5)
Neutrophils % 78.7 H %
(42.2-75.2)
Lymphocytes % 8.7 L %
(20.5-51.1)
Monocytes % 11.0 H %
(1.7-9.3)
Sodium 128 L mmol/L
(135-145)
Chloride 95 L mmol/L
(98-107)
Creatinine 0.5 L mg/dL
(0.6-1.0)
Glucose 115 H mg/dl
(70-99)
Calcium 8.1 L mg/dl
(8.4-10.2)
Total Protein 5.9 L g/dl
(6.3-8.2)
Albumin 2.8 L g/dl
(3.5-5.0)
05/11/25 07:09
05/11/25 07:09
Vital Signs
Initial and Last Documented VS:
Initial Vital Signs
Temp Pulse Resp BP Pulse Ox
99.2 F 80 26 150/69 97
05/11/25 05:09 05/11/25 05:09 05/11/25 05:09 05/11/25 05:09 05/11/25 05:09
Last Documented Vital Signs
Temp Pulse Resp BP Pulse Ox
98.6 F 75 20 131/50 95
05/11/25 11:43 05/11/25 11:43 05/11/25 11:43 05/11/25 11:43 05/11/25 11:43
MDM/Problems Addressed
Differential Diagnosis Includes:
Acute asthma exacerbation, acute pneumonia, CHF
MDM/Problems Addressed:
Patient presents with acute shortness of breath and wheeze.
Chronic conditions affecting care:
Asthma
Acute Exacerbation and/or Progression of Chronic Illness:
Patient likely has asthma exacerbation
Acute Exacerbation and/or Progression of Chronic Illness: Asthma
*Radiology
Radiology exam reviewed: preliminary read by ED provider (Chest x-ray reviewed by me. No acute disease) and radiology read reviewed
*Pulse Oximetry
SaO2: 92
Oxygen Mode of Delivery: Room air
Patient hypoxic: no
*EKG
Interpreted by ED Provider?: Yes
Interpretation: normal
Comparison EKG: no changes
Rate: normal
Rhythm: sinus
[place]: normal axis
Interval: normal interval
QRS Pattern: normal QRS
Ischemia: no ischemia
*Blow Mold Machine Operator Interpretation
Rate: normal
Interpretation: normal
Rhythm: sinus
*Critical Care Note
Total Time (30-74mins, 75-104mins- exclusive of procedures): 78 minutes
comment:
78 minutes critical care given to the patient including counseling the patient, reviewing her blood work, speaking to [facility] hospitalist, Dr. Erickson, trauma center at [facility] as well as resident and attending [facility] at [facility], as well as
hospitalist at [facility]. Additional time also spent speaking to ED attending at [facility]
Data Reviewed
Review of Other/Old Records Reveals: Radiology Studies (CT abdomen pelvis reviewed from 04/27/2025 which shows an adnexal mass concerning for ovarian neoplasm)
Source: patient
Patient Management
Social determinants of health affecting care: Living situation and Strong social support
Discussion with other providers: Hospitalist and Other (ED attending at [facility], as well as [facility] attending and resident at [facility])
Escalation/DeEscalation of care consider admission/obs:
Patient presents with shortness of breath related to asthma exacerbation as well as blood loss anemia. Patient is Hemoccult positive from below but has brown stool. CT ordered to make sure patient does not have free blood in abdomen from ovarian
mass.
Both at [facility] and Dr. Erickson are not comfortable with patient staying at [facility] given possible need for [facility] eval
After extensively speaking to multiple specialists at [facility], decision made to transfer the patient to ED at [facility]
ED Attending Note
-
Portions of this chart may have been created with voice recognition software.� Occasional wrong word or��sound alike� substitutions may have occurred due to the inherent limitations of voice recognition software.
Discharge Plan
Departure
Patient Disposition: Acute Care Hospital
Date of Disposition: 05/11/25
Time of Disposition: 10:21
Patient with high blood pressure during this ER visit?: Yes
Condition: Good
Covid-19: Not Applicable
Discharge Problem:
Asthma exacerbation, Acute blood loss anemia
Prescriptions:
No Action
metoprolol tartrate 50 MG tablet
50 mg PO BID
vitamin B complex 1 EACH tablet
1 tab PO DAILY
metformin 500 MG tablet
500 mg PO BID
atorvastatin [Lipitor] 40 MG tablet
40 mg PO QPM Qty: 30 0RF
famotidine 10 mg Tablet
10 mg PO BID Qty: 0 0RF
montelukast 10 mg Tablet
10 mg PO DAILY Qty: 0 0RF
dexlansoprazole 60 mg Capsule,Biphase Delayed Releas
60 mg PO Q48H Qty: 0 0RF
Vitamins A,C,D,E
1 tab PO DAILY Qty: 0 0RF
Patient Comments:
all vitamins are separate - pt does not know dosage of each
clotrimazole 10 mg Rosy
10 mg MUCOUS MEMBRANE .[id number] PRN (Reason: thrush)
ondansetron HCl [Zofran] 8 mg Tablet
8 mg PO Q8H PRN (Reason: nausea)
calcium carbonate [Tums] 200 mg calcium (500 mg) Tablet,Chewable
400 mg PO DAILY
doxycycline hyclate 100 mg Tablet
100 mg PO BID
fluticasone propion-salmeterol 115-21 mcg/actuation Hfa Aerosol Inhaler
2 puff INHALATION BID
Sensimist
1 spray inhalation DAILY
codeine-guaifenesin
1 dose PO BID PRN (Reason: cough)
Referrals:
Miri Leach CRNP [Family Provider, Internal Medicine]
Hospital Transfer
Other hospital: [facility]
I certify that the patient requires transfer: Yes
Discussed case with accepting physician: Dr Reddy
Reason for transfer: specialties available
Interventions
Interventions:
*Risk Screen - Suicide Last Done: 05/11/25 05:09
*General Assessment Last Done: 05/11/25 05:09
*Neglect/Abuse Screening Last Done: 05/11/25 05:09
*ED- Fall Risk Assessment Last Done: 05/11/25 05:09
*ED COVID-19 Vaccine History Last Done: 05/11/25 05:09
*ED Influenza Vaccine History Last Done: 05/11/25 05:09
ED- Cardiac Assessment Last Done: 05/11/25 07:12
ED- Pulmonary Assessment Last Done: 05/11/25 07:12
Discharge Date and Time
Print Language: BULGARIAN
[2025-05-11 07:43] LABS: Hematocrit 27.6 % (37.0-47.0); Hemoglobin 8.8 g/dL (12.0-16.0); Mean Corp Hgb Conc. 31.9 g/dL (33.0-37.0); Mean Corpuscular Volume 84.9 fL (81.0-99.0); Nucleated Red Blood Cells % 0 %; Red Cell Dist. Width 13.3 % (11.5-14.5)
[2025-05-11] MEDS: DUONEB 3 ML INH ×2 (07:43→11:44)
[2025-05-11] MEDS: DELTASONE 40 MG PO (07:44)
[2025-05-11 07:49] VITALS: BP 124/42
[2025-05-11] MEDS: NSS 1000 IV (09:06)
[2025-05-11 09:38] VITALS: BP 125/53
[2025-05-11 11:43] VITALS: BP 131/50
--- NOTE | 2025-05-11 12:37 | EDRN ---
Report given to LICHA Gibson at [facility].
--- NOTE | 2025-05-11 12:59 | EDRN ---
Report given to [facility] staff. Patient wrote her car information on piece of paper. Paper given to Paige in Security.
[2025-05-11 13:00] VITALS: BP 131/50
== END 2025-05-11 12:55 | disposition short-term general hospital (02) ==
LOC: EMR 05:05
PROVIDERS: EMERGENCY PHYSICIAN Emergency Medicine; FAMILY PHYSICIAN Nurse Practitioner Primary Care
DX: J45.901 Unspecified asthma with (acute) exacerbation (principal); D62 Acute posthemorrhagic anemia; K21.9 Gastro-esophageal reflux disease without esophagitis; I10 Essential (primary) hypertension; E05.00 Thyrotoxicosis with diffuse goiter without thyrotoxic crisis or storm; Z87.11 Personal history of peptic ulcer disease
CPT/HCPCS: 99284; 94640; 96360; 71046; 74176; 80053; 85025; 86850; 86900; 86901; 93005